=== PATIENT | male | born 1960 | race Caucasian/White ===

== ENCOUNTER 2018-12-01 19:40 | Inpatient (IN) | payer OTHER ==
[~2018-12-01] VITALS: Ht 172.7 cm; Wt 198.2 kg
[2018-12-01] MEDS ORDERED: ACETAMINOPHEN 325 MG TABLET PO PRN (20:15)
[2018-12-01] MEDS ORDERED: MAG HYDROX/AL HYDROX/SIMETH 30 ML ORAL.SUSP PO PRN (20:15)
[2018-12-01] MEDS ORDERED: METHYL SALICYLATE/MENTHOL TOPICAL OINTMENT 57GM TUBE. TP PRN (20:15)
[2018-12-01] MEDS ORDERED: MAGNESIUM HYDROXIDE 2,400 MG/30 ML ORAL.SUSP. PO PRN (20:15)
[2018-12-01 20:23] VITALS: BP 113/74
[2018-12-01 21:33] LABS: BACTERIA,URINE FEW /HPF (0-FEW); BILIRUBIN,URINE NEG (NEG); CLARITY,URINE CLEAR; COLOR,URINE YELLOW; GLUCOSE,URINE NEG (NEG); NITRITE,URINE NEG (NEG); RBC,URINE 0 /HPF (0-2); SQUAMOUS EPITHELIAL CELL,UR MOD /LPF; UROBILINOGEN,URINE 0.2 mg/dL (0.2 mg/dL); WBC,URINE RARE /HPF (0-4)
[2018-12-01] MEDS ORDERED: FLUT16SP21 NS (21:50)
[2018-12-01] MEDS ORDERED: FURO20TA3 PO (21:50)
[2018-12-01] MEDS ORDERED: ALBU2.5V5 NEB (21:50)
[2018-12-01] MEDS ORDERED: METF10007 PO (21:50)
[2018-12-01] MEDS ORDERED: LISI10TA2 PO (21:50)
[2018-12-01] MEDS ORDERED: DEXT-217 PO (21:50)
[2018-12-01] MEDS ORDERED: ALLO300T PO (21:50)
[2018-12-01] MEDS ORDERED: FERR324T2 PO (21:50)
[2018-12-01] MEDS ORDERED: DOCU100C28 PO (21:50)
[2018-12-01] MEDS ORDERED: DICL100G18 TP (21:50)
[2018-12-01] MEDS ORDERED: CHOL10003 PO (21:50)
[2018-12-01] MEDS ORDERED: LIRA0.6P2 SQ (21:50)
[2018-12-01] MEDS ORDERED: ROPI5TAB4 PO (21:50)
[2018-12-01] MEDS ORDERED: TRAZ150T49 PO (21:50)
[2018-12-01] MEDS ORDERED: ASCO500T3 PO (21:50)
[2018-12-01] MEDS ORDERED: TAMS0.4C97 PO (21:50)
[2018-12-01] MEDS ORDERED: WARF-31 PO ×2 (21:50)
[2018-12-01] MEDS ORDERED: ASPI-612 PO (21:50)
[2018-12-01] MEDS ORDERED: INSU100V31 SQ (21:50)
[2018-12-01] MEDS ORDERED: INSU100I13 SQ (21:50)
[2018-12-01] MEDS ORDERED: VENL150T PO (21:50)
[2018-12-01] MEDS ORDERED: LEVE750T8 PO (21:50)
[2018-12-01] MEDS ORDERED: MELA3TAB56 PO (21:50)
[2018-12-01] MEDS ORDERED: ARIP5TAB13 PO (21:50)
[2018-12-01] MEDS ORDERED: PRAV40TA2 PO (21:50)
[2018-12-01] MEDS ORDERED: ALBU2.5V14 NEB (21:54)
--- NOTE | 2018-12-01 21:54 | PDOC ---
Exam Note: Chinmay Note: Please also refer to the separate dictated note~for this date of service dictated separately. Discussed the patient with Nursing staff reviewed the chart.~Reviewed interim history and current functioning. Reviewed vital signs,~Labs/ Radiology~and current medications noted below. Continue current treatment with the changes noted in the dictated addendum note Assessment: Vital Signs/I&O: Vital Signs Date Time Temp Pulse Resp B/P (MAP) Pulse Ox O2 Delivery O2 Flow Rate FiO2 12/01/18 20:23 97.7 86 22 113/74 (87) 98 Room Air Labs: Laboratory Tests Test 12/01/18 20:50 Urine Collection Type Unknown Urine Color Yellow Urine Clarity Clear Urine pH 6.0 Urine Specific [place] 1.020 Urine Protein Neg (NEG-TRACE) Urine Glucose (UA) Neg mg/dL (NEG) Urine Ketones (Stick) Neg mg/dL (NEG) Urine Blood Neg (NEG) Urine Nitrite Neg (NEG) Urine Bilirubin Neg (NEG) Urine Urobilinogen Dipstick 0.2 mg/dL (0.2 mg/dL) Urine Leukocyte Esterase Neg (NEG) Urine RBC 0 /HPF (0-2) Urine WBC Rare /HPF (0-4) Urine Squamous Epithelial Cells Mod /LPF Urine Bacteria Few /HPF (0-FEW) Urine Mucus Slight /LPF Current Medications: I have reviewed the current psychotropics carefully including drug interactions. Risk benefit ratio favors no change other than as noted in my dictated progress note. AMOL URBAN MD Dec 01, 2018 21:54
[2018-12-01 21:58] LABS: BASO % 1 % (0-3); EOS # 0.2 x10^3/uL (0.0-0.7); EOS % 2 % (0-3); HEMATOCRIT 40.1 % (39.0-53.0); HEMOGLOBIN 13.1 g/dL (13.0-17.5); LYMPH # 1.4 x10^3/uL (1.0-4.8); LYMPH % 14 % (24-48); MEAN CORPUSCULAR HEMOGLOBIN 26 pg (25-35); MEAN CORPUSCULAR HGB CONC 33 g/dL (31-37); MEAN CORPUSCULAR VOLUME 78 fL (79-100); MONO # 0.6 x10^3/uL (0.0-1.1); MONO % 6 % (0-9); NEUT # 7.8 x10^3uL (1.8-7.7); NEUT % 78 % (31-73); PLATELET COUNT 342 x10^3/uL (140-400); RED BLOOD COUNT 5.12 x10^6/uL (4.30-5.70); RED CELL DISTRIBUTION WIDTH 18.5 % (11.5-14.5); WHITE BLOOD COUNT 9.9 x10^3/uL (4.0-11.0)
[2018-12-01] MEDS ORDERED: NON FORMULARY ITEM (Albuterol Sulfate (Albuterol Sulfate Conc Neb Soln) 2.5 MG) NEB PRN (22:00)
[2018-12-01 22:10] LABS: ALBUMIN 3.8 g/dL (3.4-5.0); ALBUMIN/GLOBULIN RATIO 0.8 (1.0-1.7); CALCIUM 9.7 mg/dL (8.5-10.1); CREATININE 1.1 mg/dL (0.7-1.3); MAGNESIUM 1.8 mg/dL (1.8-2.4); POTASSIUM 3.8 mmol/L (3.5-5.1); TOTAL BILIRUBIN 0.3 mg/dL (0.2-1.0); TOTAL PROTEIN 8.5 g/dL (6.4-8.2)
[2018-12-01] MEDS ORDERED: DEXTROSE ORAL GEL 15 GM TUBE. PO PRN (22:30)
[2018-12-01] MEDS ORDERED: ALBUTEROL SULFATE 2.5 MG/3 ML NEBU. NEB PRN (22:45)
[2018-12-01] MEDS: traZODone 150 MG TABLET. PO SCH (22:50)
[2018-12-01] MEDS: SIMVASTATIN 20 MG TABLET PO SCH (22:50)
[2018-12-01] MEDS: MELATONIN 3 MG TABLET PO SCH (22:51)
[2018-12-01] MEDS: levETIRAcetam 500 MG TABLET PO SCH (22:51)
[2018-12-01] MEDS: DOCUSATE SODIUM 100 MG CAPSULE PO SCH (22:51)
[2018-12-01] MEDS: TAMSULOSIN 0.4 MG CAP.ER.24H. PO SCH (22:51)
[2018-12-01] MEDS: rOPINIRole 1 MG TABLET. PO SCH (22:52)
[2018-12-01] MEDS: INSULIN GLARGINE SYRINGE. SQ SCH (23:19)
[2018-12-02 06:39] VITALS: BP 123/86
[2018-12-02] MEDS: levETIRAcetam 500 MG TABLET PO SCH ×2 (09:00→20:01)
[2018-12-02] MEDS ORDERED: INSULIN GLARGINE HUM REC ANLOG 35 UNIT SQ SCH (09:00)
[2018-12-02] MEDS: NON FORMULARY ITEM (Liraglutide (Victoza 3-Pak) 1.8 MG) SQ SCH (09:00)
[2018-12-02] MEDS ORDERED: LEVETIRACETAM 1500 MG PO SCH (09:00)
[2018-12-02] MEDS: DOCUSATE SODIUM 100 MG CAPSULE PO SCH ×2 (09:00→20:00)
[2018-12-02] MEDS ORDERED: DOCUSATE SODIUM 100 MG CAPSULE PO SCH (09:00)
[2018-12-02] MEDS: INSULIN LISPRO 300 UNITS/3 ML VIAL. SQ SCH ×3 (09:05→17:19)
[2018-12-02] MEDS: INSULIN GLARGINE SYRINGE. SQ SCH ×2 (09:07→20:54)
[2018-12-02] MEDS: CHOLECALCIFEROL (VITAMIN D3) 1,000 UNIT TABLET PO SCH (09:14)
[2018-12-02] MEDS: ASCORBIC ACID 500 MG TABLET PO SCH ×2 (09:15→20:01)
[2018-12-02] MEDS: metFORMIN 500 MG TABLET PO SCH ×2 (09:15→16:58)
[2018-12-02] MEDS: FUROSEMIDE 20 MG TABLET PO SCH (09:16)
[2018-12-02] MEDS: VENLAFAXINE 100 MG TABLET. PO SCH ×3 (09:16→20:02)
[2018-12-02] MEDS: ARIPiprazole 5 MG TABLET PO SCH (09:16)
[2018-12-02] MEDS: ASPIRIN ENTERIC COATED 81 MG TABLET.DR. PO SCH (09:16)
[2018-12-02] MEDS: FERROUS SULFATE 325 MG TABLET. PO SCH ×2 (09:17→16:58)
[2018-12-02] MEDS: ALLOPURINOL 300 MG TABLET. PO SCH (09:17)
[2018-12-02] MEDS: LISINOPRIL 10 MG TABLET PO SCH (09:18)
[2018-12-02] MEDS: FLUTICASONE 50MCG/NASAL SPRAY 16GM BOTTLE. NS SCH (11:25)
[2018-12-02 15:57] VITALS: BP 103/69
[2018-12-02 16:10] VITALS: BP 116/75
[2018-12-02 16:15] VITALS: BP 126/88
[2018-12-02 16:20] VITALS: BP 96/67
[2018-12-02] MEDS: WARFARIN 5 MG TABLET. PO SCH (17:24)
[2018-12-02 19:53] LABS: THYROID STIM HORMONE (TSH) 6.019 uIU/mL (0.358-3.740)
[2018-12-02] MEDS: SIMVASTATIN 20 MG TABLET PO SCH (20:00)
[2018-12-02] MEDS: TAMSULOSIN 0.4 MG CAP.ER.24H. PO SCH (20:00)
[2018-12-02] MEDS: rOPINIRole 1 MG TABLET. PO SCH (20:00)
[2018-12-02] MEDS: MELATONIN 3 MG TABLET PO SCH (20:01)
[2018-12-02] MEDS: traZODone 150 MG TABLET. PO SCH (20:02)
[2018-12-02] MEDS ORDERED: ROPINIROLE HCL 5 MG PO SCH (21:00)
[2018-12-02] MEDS ORDERED: traZODone 150 MG TABLET. PO SCH (21:00)
[2018-12-02] MEDS ORDERED: TAMSULOSIN 0.4 MG CAP.ER.24H. PO SCH (21:00)
[2018-12-02] MEDS ORDERED: NON FORMULARY ITEM (Melatonin 6 MG) PO SCH (21:00)
[2018-12-02] MEDS ORDERED: NON FORMULARY ITEM (Pravastatin Sodium 40 MG) PO SCH (21:00)
--- NOTE | 2018-12-02 21:10 | PDOC ---
Exam Note: Chinmay Note: Please also refer to the separate dictated note~for this date of service dictated separately.~Patient seen individually. Discussed the patient with Nursing staff reviewed the chart.~Reviewed interim history and current functioning. Reviewed vital signs,~Labs/ Radiology~and current medications noted below. Continue current treatment with the changes noted in the dictated addendum note Assessment: Vital Signs/I&O: Vital Signs Date Time Temp Pulse Resp B/P (MAP) Pulse Ox O2 Delivery O2 Flow Rate FiO2 12/02/18 16:20 78 96/67 (77) Room Air 12/02/18 15:57 97.9 16 93 I & O 12/01/18 12/01/18 12/02/18 14:59 22:59 06:59 Intake Total 0 ml Balance 0 ml Labs: Laboratory Tests Test 12/01/18 21:30 12/01/18 22:32 12/02/18 06:04 12/02/18 07:53 White Blood Count 9.9 x10^3/uL (4.0-11.0) Red Blood Count 5.12 x10^6/uL (4.30-5.70) Hemoglobin 13.1 g/dL (13.0-17.5) Hematocrit 40.1 % (39.0-53.0) Mean Corpuscular Volume 78 fL (79-100) L Mean Corpuscular Hemoglobin 26 pg (25-35) Mean Corpuscular Hemoglobin Concent 33 g/dL (31-37) Red Cell Distribution Width 18.5 % (11.5-14.5) H Platelet Count 342 x10^3/uL (140-400) Neutrophils (%) (Auto) 78 % (31-73) H Lymphocytes (%) (Auto) 14 % (24-48) L Monocytes (%) (Auto) 6 % (0-9) Eosinophils (%) (Auto) 2 % (0-3) Basophils (%) (Auto) 1 % (0-3) Neutrophils # (Auto) 7.8 x10^3uL (1.8-7.7) H Lymphocytes # (Auto) 1.4 x10^3/uL (1.0-4.8) Monocytes # (Auto) 0.6 x10^3/uL (0.0-1.1) Eosinophils # (Auto) 0.2 x10^3/uL (0.0-0.7) Basophils # (Auto) 0.0 x10^3/uL (0.0-0.2) Sodium Level 136 mmol/L (136-145) Potassium Level 3.8 mmol/L (3.5-5.1) Chloride Level 98 mmol/L (98-107) Carbon Dioxide Level 27 mmol/L (21-32) Anion Gap 11 (6-14) Blood Urea Nitrogen 20 mg/dL (8-26) Creatinine 1.1 mg/dL (0.7-1.3) Estimated GFR (Cockcroft-Gault) 69.0 BUN/Creatinine Ratio 18 (6-20) Glucose Level 86 mg/dL (70-99) Calcium Level 9.7 mg/dL (8.5-10.1) Magnesium Level 1.8 mg/dL (1.8-2.4) Iron Level 30 ug/dL (65-175) L Total Iron Binding Capacity 334 ug/dL (250-450) Iron Saturation 9 % (15-34) L Total Bilirubin 0.3 mg/dL (0.2-1.0) Aspartate Amino Transferase (AST) 21 U/L (15-37) Alanine Aminotransferase (ALT) 38 U/L (16-63) Alkaline Phosphatase 162 U/L (46-116) H Total Protein 8.5 g/dL (6.4-8.2) H Albumin 3.8 g/dL (3.4-5.0) Albumin/Globulin Ratio 0.8 (1.0-1.7) L Triglycerides Level 97 mg/dL (0-150) Cholesterol Level 155 mg/dL (0-200) LDL Cholesterol, Calculated 86 mg/dL (0-100) VLDL Cholesterol, Calculated 19 mg/dL (0-40) Non-HDL Cholesterol Calculated 105 mg/dL (0-129) HDL Cholesterol 50 mg/dL (40-60) Cholesterol/HDL Ratio 3.0 25-Hydroxy Vitamin D Total 36.7 ng/mL (30-100) Thyroid Stimulating Hormone (TSH) 6.019 uIU/mL (0.358-3.740) Treponema pallidum Antibody Nonreactive (Nonreactive) Glucose (Fingerstick) 139 mg/dL (70-99) H 157 mg/dL (70-99) H Prothrombin Time 20.4 SEC (9.4-11.4) H Prothrombin Time INR 2.0 (0.9-1.1) H Test 12/02/18 19:30 Glucose (Fingerstick) 158 mg/dL (70-99) H Current Medications: Meds: Current Medications Medications (Trade) Dose Ordered Sig/Rashmi Route PRN Reason Start Time Stop Time Status Last Admin Dose Admin Allopurinol (Zyloprim) 300 mg DAILY PO 12/02/18 09:00 12/02/18 09:18 Ascorbic Acid (Vitamin C) 250 mg BID PO 12/02/18 09:00 12/02/18 20:02 Aspirin (Aspirin Enteric Coated) 81 mg DAILY PO 12/02/18 09:00 12/02/18 09:18 Vitamin D (Vitamin D3) 1,000 unit DAILY PO 12/02/18 09:00 12/02/18 09:18 Fluticasone Propionate (Flonase) 2 spray DAILY NS 12/02/18 09:00 12/02/18 11:25 Furosemide (Lasix) 20 mg DAILY PO 12/02/18 09:00 12/02/18 09:18 Lisinopril (Prinivil) 10 mg DAILY PO 12/02/18 09:00 12/02/18 09:18 Warfarin Sodium (Coumadin) 12.5 mg SuMoTuThFrSa PO 12/02/18 16:00 12/02/18 17:24 Ferrous Sulfate (Feosol) 325 mg BIDBFRMEAL PO 12/02/18 07:30 12/02/18 17:01 Insulin Human Lispro (HumaLOG) 35 units TIDWMEALS SQ 12/02/18 08:00 12/02/18 17:19 Metformin HCl (Glucophage) 1,000 mg BIDWMEALS PO 12/02/18 08:00 12/02/18 17:01 Aripiprazole (Abilify) 2.5 mg DAILY PO 12/02/18 09:00 12/02/18 09:18 Venlafaxine HCl (Effexor) 100 mg TID PO 12/02/18 09:00 12/02/18 20:02 Warfarin Sodium (Coumadin Per Pharmacy) 1 each PRN DAILY PRN MC SEE COMMENTS 12/01/18 22:00 12/02/18 13:00 Docusate Sodium (Colace) 100 mg BID PO 12/01/18 22:30 12/02/18 20:02 Tamsulosin HCl (Flomax) 0.4 mg HS PO 12/01/18 22:30 12/02/18 20:02 Trazodone HCl (Desyrel) 150 mg HS PO 12/01/18 22:30 12/02/18 20:02 Insulin Glargine (Lantus Syringe) 35 unit BID SQ 12/01/18 23:00 12/02/18 20:54 Levetiracetam (Keppra) 1,500 mg BID PO 12/01/18 22:30 12/02/18 20:02 Melatonin 6 mg QHS PO 12/01/18 22:30 12/02/18 20:02 Simvastatin (Zocor) 20 mg HS PO 12/01/18 22:45 12/02/18 20:02 Ropinirole HCl (Requip) 5 mg HS PO 12/01/18 22:45 12/02/18 20:02 I have reviewed the current psychotropics carefully including drug interactions. Risk benefit ratio favors no change other than as noted in my dictated progress note. Diagnosis: Problems: (1) Anxiety disorder (2) Impulse control disorder (3) Major depressive disorder, recurrent episode AMOL URBAN MD Dec 02, 2018 21:09
[2018-12-03 01:07] LABS: HEMOGLOBIN A1C 5.9 % (4.8-5.6); THYROXINE 7.4 ug/dL (4.5-12.0)
--- NOTE | 2018-12-03 01:26 | CONS ---
DATE OF CONSULTATION: 12/02/2018 REASON FOR CONSULTATION: Medical management. HISTORY OF PRESENT ILLNESS: The patient is a 58-year-old male patient, who was admitted from home with suicidal ideation, thoughts of self-harm, increased depression, anxiety and feeling worthless and useless. Apparently, he has memory problem and has difficulty with dizziness when he stands up. 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 PAST MEDICAL HISTORY: Significant for hypertension, hyperlipidemia, type 2 diabetes, morbid obesity, obstructive sleep apnea, bronchial asthma, diabetic neuropathy, has malignant bladder tumor, benign prostatic hypertrophy, bilateral pulmonary emboli, osteoarthritis, syncope and epigastric pain. PAST PSYCHIATRIC HISTORY: Significant for depression and posttraumatic stress disorder. PAST SURGICAL HISTORY: Unremarkable. ALLERGIES: He is allergic to ADHESIVE TAPES, ATORVASTATIN, OXYCODONE AND SAXAGLIPTIN. MEDICATIONS: He is currently on following medications: He is on albuterol sulfate 2.5 mg by nebulizer 3 times a day, tamsulosin 0.4 mg at bedtime, ferrous sulfate 324 mg p.o. b.i.d., warfarin 15 mg every Thursday, warfarin 12.5 mg daily except Thursday. He is on pravastatin 40 mg at bedtime, lisinopril 10 mg daily, aspirin 81 mg once a day, Diclofenac sodium 2 grams topically q.i.d., Keppra 1500 mg twice a day, trazodone 150 mg at bedtime, venlafaxine 300 mg daily, aripiprazole 2.5 mg daily, Requip 5 mg at bedtime, glucose 16 grams p.o. as needed for hypoglycemia, furosemide 20 mg daily, Flonase 2 sprays to each nostril once a day, Colace 100 mg twice a day, metformin 1000 mg twice a day, Victoza 1.8 mg subcutaneously daily. He is on NovoLog insulin 35 units 3 times a day with meals and Lantus insulin 35 units subcutaneously twice a day, ascorbic acid 500 mg twice a day, vitamin D3 1000 international unit once a day, allopurinol 300 mg once a day, and melatonin 6 mg at bedtime. REVIEW OF SYSTEMS: As per history of present illness. PHYSICAL EXAMINATION: GENERAL: On examining him, he was sitting comfortably in his chair, in no apparent respiratory distress. No pallor, jaundice, cyanosis, or thyromegaly. No jugular venous distension. No limb edema. VITAL SIGNS: Heart rate was 86, blood pressure was 113/74, temperature was 97.7, respiratory rate was 22 and oxygen saturation was 98% on room air. HEAD, EYES, EARS, NOSE AND THROAT: Showed normocephalic, atraumatic. NECK: Supple. HEART: Showed normal first and second heart sounds. No gallop or murmur. CHEST: Clear to auscultation. No crepitation or rhonchi. ABDOMEN: Markedly distended, soft, nontender. NEUROLOGIC: He is awake, alert, responding appropriately. All cranial nerves intact. EXTREMITIES: He moves extremities without difficulty, ambulates with a walker. Does have some residual left-sided weakness. LABORATORY DATA: Showed a serum sodium 136, potassium 3.8, chloride 98, bicarbonate 27, anion gap of 11, BUN 20, creatinine 1.1, estimated GFR was 69 mL per minute. His glucose was 86, calcium was 9.7 and magnesium was 1.8. Total bilirubin, AST, ALT were normal. Alkaline phosphatase slightly elevated. Total protein was 8.5, albumin was 3.8. His white cell count was 9900, hemoglobin 13, hematocrit 40, MCV 78 and platelet count 342,000. Prothrombin time was 20.4, INR of 2. Urinalysis was essentially unremarkable. IMPRESSION: In summary, this is a 58-year-old male patient who was [facility] on account of suicidal ideation and thoughts of self-harm, increased depression, anxiety, feeling worthless and useless, all this in a background of major depressive disorder, recurrent severe with posttraumatic stress disorder. Apparently, the patient has a meningioma that was not completely resected and resulted in seizures for which he is now on Keppra 1500 mg twice a day. He has also problems with short-term memory and also dizziness whenever he stands up. He has multiple other medical problems including hypertension, hyperlipidemia, type 2 diabetes, morbid obesity, obstructive sleep apnea, has malignant bladder cancer, benign prostatic hypertrophy, bilateral pulmonary emboli and gout. PLAN: My plan is to check his orthostatics and consult Dr. Fisher and decide the further management accordingly. Thank you, Dr. Krishnan for allowing me to participate in the care of this patient. TONY STREET MD DR: Yang JOB#: [id number] / [id number]
[2018-12-03 06:31] VITALS: BP 116/72
[2018-12-03] MEDS: INSULIN LISPRO 300 UNITS/3 ML VIAL. SQ SCH ×3 (08:00→16:39)
[2018-12-03] MEDS: levETIRAcetam 500 MG TABLET PO SCH ×2 (08:32→20:12)
[2018-12-03] MEDS: VENLAFAXINE 100 MG TABLET. PO SCH ×2 (08:32→13:32)
[2018-12-03] MEDS: ARIPiprazole 5 MG TABLET PO SCH (08:33)
[2018-12-03] MEDS: LISINOPRIL 10 MG TABLET PO SCH (08:34)
[2018-12-03] MEDS: ASPIRIN ENTERIC COATED 81 MG TABLET.DR. PO SCH (08:34)
[2018-12-03] MEDS: metFORMIN 500 MG TABLET PO SCH ×2 (08:34→16:43)
[2018-12-03] MEDS: ALLOPURINOL 300 MG TABLET. PO SCH (08:34)
[2018-12-03] MEDS: DOCUSATE SODIUM 100 MG CAPSULE PO SCH ×2 (08:34→20:11)
[2018-12-03] MEDS: FUROSEMIDE 20 MG TABLET PO SCH (08:35)
[2018-12-03] MEDS: ASCORBIC ACID 500 MG TABLET PO SCH ×2 (08:35→20:11)
[2018-12-03] MEDS: CHOLECALCIFEROL (VITAMIN D3) 1,000 UNIT TABLET PO SCH (08:35)
[2018-12-03] MEDS: FLUTICASONE 50MCG/NASAL SPRAY 16GM BOTTLE. NS SCH (08:36)
[2018-12-03] MEDS: FERROUS SULFATE 325 MG TABLET. PO SCH ×2 (08:36→15:53)
[2018-12-03] MEDS: INSULIN GLARGINE SYRINGE. SQ SCH ×2 (08:38→20:19)
[2018-12-03] MEDS: NON FORMULARY ITEM (Liraglutide (Victoza 3-Pak) 1.8 MG) SQ SCH (09:00)
--- NOTE | 2018-12-03 13:49 | HP ---
ADMIT DATE: 12/02/2018 PSYCHIATRIC ADMISSION HISTORY/EVALUATION This late entry, date of service 12/02/2018 covers the elements not covered in my initial note. I met with the patient in the evening of 12/02/2018 for this evaluation. IDENTIFYING DATA: The patient is a 58-year-old male referred to us from the [facility] in [place], [place] where he presented from home on account of suicidal ideation with thoughts of harming himself, worsening symptoms of depression, anxiety, feeling worthless, hopeless, helpless. He complains of some short-term memory deficits in addition to all of the above. He presented to the [facility] and then referred to us for inpatient psychiatric stabilization for his depression with suicidal ideation. CHIEF COMPLAINT: "They could not take me on the Adult Unit because of my weight. They did not have big enough beds for me. Yes, I have been depressed." HISTORY OF PRESENT ILLNESS: The patient relates worsening symptoms of depression, feeling hopeless, helpless, worthless, obsessed about wanting to hurt himself. He admits to some short-term memory deficits, which he attributes to cognitive impairment consequent to a meningioma removal in 2005 and he believes the scar caused the memory problems. He states he has had some absence seizures since then as well, treated on Keppra. No clear symptoms of bipolar disorder. He has had some sleep and appetite disturbance. PAST PSYCHIATRIC HISTORY: As above. MEDICAL HISTORY: Morbid obesity, hypertension, hyperlipidemia, diabetes mellitus, obstructive sleep apnea, asthma, diabetic neuropathy, PTSD, malignant bladder tumor, BPH, history of pulmonary embolism, osteoarthritis, history of syncope, epigastric pain. CODE STATUS: Full code. ALLERGIES: ADHESIVE TAPE, SAXAGLIPTIN, ATORVASTATIN, OXYCODONE. ACCU-CHEKS: a.c. and at bedtime. DIET: Regular, diabetic. Ambulates ad jose luis with walker. CURRENT PSYCHOTROPICS: Abilify 2.5 mg a day, melatonin 6 mg at bedtime, trazodone 150 mg at bedtime, Effexor XR 300 mg daily. FAMILY HISTORY: Noncontributory. SOCIAL HISTORY: No alcohol, drug abuse, physical, sexual or elder abuse. He is not known to be a perpetrator. He resides at home with his . ASSETS: Supportive family, stable living at home. REACTION TO HOSPITALIZATION: The patient accepting of it. MENTAL STATUS EXAMINATION: The patient was seen individually in the evening of 12/02/2018. He is alert, oriented to himself and situation. He knew the President was President Roberto. He knew the year, was able to do one step on the serial 7's, did have some short-term memory deficits. Mood is depressed, anxious. Affect is mood congruent. He denied active current suicidal ideation. Attention span is short. Language function intact. Intellect average. Insight good. Judgment intact to standard questioning. IMPRESSION: Major depressive disorder, recurrent with suicidal ideation; history of posttraumatic stress disorder, anxiety disorder, unspecified. Rest as above. PLAN: Admit to Gerops[facility]iat[facility] Unit at [facility]. I will see the patient daily individually from a psychiatric standpoint. Medical followup with Dr. Mesa. We will obtain past [facility] records from the [facility], then consider changing the Effexor to Cymbalta augmenting with increasing dosage of Abilify and possibly Wellbutrin and if bipolar 2 disorder symptoms are evident, we will consider Lamictal. ESTIMATED LENGTH OF STAY: 10-12 days. DISPOSITION: Plans back home with outpatient followup at the [facility]. AMOL URBAN MD DR: YISSEL/jin JOB#: [id number] / [id number]
[2018-12-03] MEDS ORDERED: DEXTROSE 50% 25 GM / 50ML DISP.SYRIN. IV PRN (14:15)
[2018-12-03 15:51] VITALS: BP 118/73
[2018-12-03] MEDS: WARFARIN 5 MG TABLET. PO SCH (15:52)
[2018-12-03] MEDS: traZODone 150 MG TABLET. PO SCH (20:10)
[2018-12-03] MEDS: rOPINIRole 1 MG TABLET. PO SCH (20:10)
[2018-12-03] MEDS: TAMSULOSIN 0.4 MG CAP.ER.24H. PO SCH (20:12)
[2018-12-03] MEDS: MELATONIN 3 MG TABLET PO SCH (20:12)
[2018-12-03] MEDS: SIMVASTATIN 20 MG TABLET PO SCH (20:18)
[2018-12-03] MEDS ORDERED: DULoxetine HCL 30 MG CAPSULE.DR PO SCH (21:00)
--- NOTE | 2018-12-03 22:03 | PDOC ---
Exam Note: Chinmay Note: Please also refer to the separate dictated note~for this date of service dictated separately.~Patient seen individually. Discussed the patient with Nursing staff reviewed the chart.~Reviewed interim history and current functioning. Reviewed vital signs,~Labs/ Radiology~and current medications noted below. Continue current treatment with the changes noted in the dictated addendum note Assessment: Vital Signs/I&O: Vital Signs Date Time Temp Pulse Resp B/P (MAP) Pulse Ox O2 Delivery O2 Flow Rate FiO2 12/03/18 15:51 98.0 88 20 118/73 (88) 94 12/03/18 06:31 BiPAP/CPAP I & O 12/02/18 12/02/18 12/03/18 14:59 22:59 06:59 Intake Total 960 ml 480 ml 240 ml Balance 960 ml 480 ml 240 ml Labs: Laboratory Tests Test 12/03/18 07:21 12/03/18 11:19 12/03/18 16:19 12/03/18 19:07 Glucose (Fingerstick) 100 mg/dL (70-99) H 150 mg/dL (70-99) H 117 mg/dL (70-99) H 172 mg/dL (70-99) H Current Medications: I have reviewed the current psychotropics carefully including drug interactions. Risk benefit ratio favors no change other than as noted in my dictated progress note. Diagnosis: Problems: (1) Anxiety disorder (2) Impulse control disorder (3) Major depressive disorder, recurrent episode AMOL URBAN MD Dec 03, 2018 22:03
[2018-12-04 06:00] VITALS: BP 109/73
[2018-12-04] MEDS: INSULIN LISPRO 300 UNITS/3 ML VIAL. SQ SCH ×3 (08:00→17:00)
[2018-12-04] MEDS: metFORMIN 500 MG TABLET PO SCH ×2 (08:21→16:58)
[2018-12-04] MEDS: ASCORBIC ACID 500 MG TABLET PO SCH ×2 (08:21→20:17)
[2018-12-04] MEDS: levETIRAcetam 500 MG TABLET PO SCH ×2 (08:22→20:18)
[2018-12-04] MEDS: ALLOPURINOL 300 MG TABLET. PO SCH (08:22)
[2018-12-04] MEDS: ASPIRIN ENTERIC COATED 81 MG TABLET.DR. PO SCH (08:22)
[2018-12-04] MEDS: DOCUSATE SODIUM 100 MG CAPSULE PO SCH ×2 (08:22→20:17)
[2018-12-04] MEDS: FERROUS SULFATE 325 MG TABLET. PO SCH ×2 (08:22→16:48)
[2018-12-04] MEDS: FUROSEMIDE 20 MG TABLET PO SCH (08:22)
[2018-12-04] MEDS: CHOLECALCIFEROL (VITAMIN D3) 1,000 UNIT TABLET PO SCH (08:23)
[2018-12-04] MEDS: ARIPiprazole 5 MG TABLET PO SCH (08:23)
[2018-12-04] MEDS: VENLAFAXINE 37.5 MG TABLET. PO SCH ×3 (08:39→20:17)
[2018-12-04] MEDS: LISINOPRIL 5 MG TABLET. PO SCH (08:39)
[2018-12-04] MEDS: INSULIN GLARGINE SYRINGE. SQ SCH ×2 (09:26→20:50)
[2018-12-04] MEDS: FLUTICASONE 50MCG/NASAL SPRAY 16GM BOTTLE. NS SCH ×2 (10:00→10:04)
[2018-12-04 16:00] VITALS: BP_SYST 106; BP_SYST 110; BP_DIAS 71; BP_DIAS 73
[2018-12-04] MEDS: DICLOFENAC SODIUM 1% TOPICAL GEL 100GM TUBE. TP PRN (16:00)
[2018-12-04] MEDS ORDERED: WARFARIN 7.5 MG TABLET. PO ONE (16:00)
[2018-12-04] MEDS ORDERED: WARFARIN 4 MG TABLET. PO ONE (16:00)
[2018-12-04] MEDS: TAMSULOSIN 0.4 MG CAP.ER.24H. PO SCH (20:17)
[2018-12-04] MEDS: MELATONIN 3 MG TABLET PO SCH (20:17)
[2018-12-04] MEDS: SIMVASTATIN 20 MG TABLET PO SCH (20:17)
[2018-12-04] MEDS: traZODone 150 MG TABLET. PO SCH (20:17)
[2018-12-04] MEDS: rOPINIRole 1 MG TABLET. PO SCH (20:18)
--- NOTE | 2018-12-04 22:42 | PDOC ---
Exam Note: Chinmay Note: Please also refer to the separate dictated note~for this date of service dictated separately.~Patient seen individually. Discussed the patient with Nursing staff reviewed the chart.~Reviewed interim history and current functioning. Reviewed vital signs,~Labs/ Radiology~and current medications noted below. Continue current treatment with the changes noted in the dictated addendum note Assessment: Vital Signs/I&O: Vital Signs Date Time Temp Pulse Resp B/P (MAP) Pulse Ox O2 Delivery O2 Flow Rate FiO2 12/04/18 16:00 98.0 69 18 110/73 (85) 97 12/04/18 06:00 BiPAP/CPAP I & O 12/03/18 12/03/18 12/04/18 15:00 23:00 07:00 Intake Total 1200 ml 420 ml Balance 1200 ml 420 ml Labs: Laboratory Tests Test 12/04/18 06:29 12/04/18 07:10 12/04/18 11:58 12/04/18 16:34 Prothrombin Time 28.5 SEC (9.4-11.4) H Prothrombin Time INR 2.7 (0.9-1.1) H Glucose (Fingerstick) 123 mg/dL (70-99) H 148 mg/dL (70-99) H 159 mg/dL (70-99) H Test 12/04/18 19:19 Glucose (Fingerstick) 138 mg/dL (70-99) H Current Medications: Meds: Current Medications Medications (Trade) Dose Ordered Sig/Rashmi Route PRN Reason Start Time Stop Time Status Last Admin Dose Admin Lisinopril (Prinivil) 5 mg DAILY PO 12/04/18 09:00 12/04/18 08:39 Venlafaxine HCl (Effexor) 37.5 mg TID PO 12/04/18 09:00 12/06/18 09:00 12/04/18 20:19 Warfarin Sodium (Coumadin) 7.5 mg 1X WARF ONCE PO 12/04/18 16:00 12/04/18 16:01 DC 12/04/18 15:55 Warfarin Sodium (Coumadin) 4 mg 1X WARF ONCE PO 12/04/18 16:00 12/04/18 16:01 DC 12/04/18 15:55 I have reviewed the current psychotropics carefully including drug interactions. Risk benefit ratio favors no change other than as noted in my dictated progress note. Diagnosis: Problems: (1) Anxiety disorder (2) Impulse control disorder (3) Major depressive disorder, recurrent episode AMOL URBAN MD Dec 04, 2018 22:42
[2018-12-05 05:45] VITALS: BP 122/80
[2018-12-05] MEDS: DOCUSATE SODIUM 100 MG CAPSULE PO SCH ×3 (07:59→20:21)
[2018-12-05] MEDS: ALLOPURINOL 300 MG TABLET. PO SCH (08:00)
[2018-12-05] MEDS: LISINOPRIL 5 MG TABLET. PO SCH (08:00)
[2018-12-05] MEDS: VENLAFAXINE 37.5 MG TABLET. PO SCH ×3 (08:00→19:51)
[2018-12-05] MEDS: levETIRAcetam 500 MG TABLET PO SCH ×2 (08:00→19:52)
[2018-12-05] MEDS: INSULIN LISPRO 300 UNITS/3 ML VIAL. SQ SCH ×3 (08:00→17:00)
[2018-12-05] MEDS: FERROUS SULFATE 325 MG TABLET. PO SCH ×2 (08:00→16:44)
[2018-12-05] MEDS: ASCORBIC ACID 500 MG TABLET PO SCH ×2 (08:01→19:52)
[2018-12-05] MEDS: ASPIRIN ENTERIC COATED 81 MG TABLET.DR. PO SCH (08:01)
[2018-12-05] MEDS: FUROSEMIDE 20 MG TABLET PO SCH (08:01)
[2018-12-05] MEDS: metFORMIN 500 MG TABLET PO SCH ×2 (08:01→17:02)
[2018-12-05] MEDS: CHOLECALCIFEROL (VITAMIN D3) 1,000 UNIT TABLET PO SCH (08:01)
[2018-12-05] MEDS: QUEtiapine 25 MG TABLET. PO SCH ×3 (08:13→17:02)
[2018-12-05 08:59] LABS: HEMATOCRIT 39.4 % (39.0-53.0); HEMOGLOBIN 12.7 g/dL (13.0-17.5)
[2018-12-05] MEDS: INSULIN GLARGINE SYRINGE. SQ SCH ×2 (09:00→20:28)
[2018-12-05 16:07] VITALS: BP 106/65
[2018-12-05] MEDS: MELATONIN 3 MG TABLET PO SCH (19:52)
[2018-12-05] MEDS: traZODone 150 MG TABLET. PO SCH (19:52)
[2018-12-05] MEDS: SIMVASTATIN 20 MG TABLET PO SCH (19:52)
[2018-12-05] MEDS: TAMSULOSIN 0.4 MG CAP.ER.24H. PO SCH (19:52)
[2018-12-05] MEDS: rOPINIRole 1 MG TABLET. PO SCH (19:53)
--- NOTE | 2018-12-05 22:24 | PDOC ---
Exam Note: Chinmay Note: Please also refer to the separate dictated note~for this date of service dictated separately.~Patient seen individually. Discussed the patient with Nursing staff reviewed the chart.~Reviewed interim history and current functioning. Reviewed vital signs,~Labs/ Radiology~and current medications noted below. Continue current treatment with the changes noted in the dictated addendum note Assessment: Vital Signs/I&O: Vital Signs Date Time Temp Pulse Resp B/P (MAP) Pulse Ox O2 Delivery O2 Flow Rate FiO2 12/05/18 16:07 98.6 76 21 106/65 (79) 98 12/04/18 06:00 BiPAP/CPAP I & O 12/04/18 12/04/18 12/05/18 14:59 22:59 06:59 Intake Total 960 ml 480 ml 240 ml Balance 960 ml 480 ml 240 ml Labs: Laboratory Tests Test 12/05/18 07:13 12/05/18 07:24 12/05/18 12:02 12/05/18 16:19 Glucose (Fingerstick) 139 mg/dL (70-99) H 112 mg/dL (70-99) H 167 mg/dL (70-99) H Hemoglobin 12.7 g/dL (13.0-17.5) L Hematocrit 39.4 % (39.0-53.0) Prothrombin Time 34.1 SEC (9.4-11.4) H Prothrombin Time INR 3.3 (0.9-1.1) H Test 12/05/18 19:19 Glucose (Fingerstick) 139 mg/dL (70-99) H Current Medications: Meds: Current Medications Medications (Trade) Dose Ordered Sig/Rashmi Route PRN Reason Start Time Stop Time Status Last Admin Dose Admin Fluvoxamine Maleate (Luvox) 50 mg HS PO 12/05/18 21:00 12/05/18 19:54 Quetiapine Fumarate (SEROquel) 12.5 mg TID@0900,1300,1700 PO 12/05/18 09:00 12/05/18 17:02 I have reviewed the current psychotropics carefully including drug interactions. Risk benefit ratio favors no change other than as noted in my dictated progress note. Diagnosis: Problems: (1) Anxiety disorder (2) Impulse control disorder (3) Major depressive disorder, recurrent episode AMOL URBAN MD Dec 05, 2018 22:24
--- NOTE | 2018-12-05 22:44 | PN ---
DATE: 12/03/2018 PSYCHIATRIC PROGRESS NOTE This late entry 12/03/2018 covers the elements not covered in my initial note. I met with the patient at length the evening of 12/03/2018. The patient slept 7-1/4 hours previous night. He has been somewhat withdrawn, but nursing report noted to be manipulative. He told one of the female nursing staff, Kiara, that he had suicidal ideation and had taken a plastic knife from the dining room. He was in conflict with nursing staff. I processed this at length with him. REVIEW OF SYSTEMS: Ambulation impaired, with walker. No CV, , pulmonary, eye, ENT system symptoms on review. MENTAL STATUS EXAM: Oriented reasonably. Speech is coherent, abstraction fair, computation impaired, language function intact. Mood and affect somewhat depressed. He is anxious. PLAN: We had a lengthy discussion and he admits to being very obsessive, unable to drop thinking about things for days on end. I had considered changing the Effexor to Cymbalta as an antidepressant, but after the above information opted to change to Luvox 25 mg a day for 3 days, then 50 mg a day. We had a pharmacy consult to look for any drug interactions with the warfarin and the pharmacist, as indicated, they will monitor his PT/INRs more closely with the change and adjust the dosage of Coumadin as clinically indicated. IMPRESSION: Major depressive disorder, recurrent; anxiety disorder, unspecified, personality disorder, unspecified. Rest unchanged. PLAN: Change the Effexor to Luvox as above, maintain Abilify 2.5 mg a day, trazodone, melatonin for now. Consider Seroquel as a mood stabilizer in place of the Abilify at some point. MAN Miryam URBAN MD DR: YISSEL/jin JOB#: [id number] / [id number]
--- NOTE | 2018-12-05 22:57 | PN ---
DATE: 12/04/2018 PSYCHIATRIC PROGRESS NOTE This late entry 12/04/2018 covers elements not covered in my initial note. SUBJECTIVE: I met with the patient at great length the evening of 12/04/2018 and had been called by the nursing staff on a couple of occasions as an emergency earlier in the day after the patient had sneaked out a plastic knife from the dining room and then placed on line of sight, not to be back in his room, but in the activity area for safety precautions. The patient states he stole the knife to see how alert the nursing staff were to everything around them and in fact was the one, who went and told the staff what he had done and he would not have done this if he was suicidal. Nevertheless, he has difficulty recognizing things from a nursing standpoint as well and addressed at length. REVIEW OF SYSTEMS: Ambulation impaired. No CV, , pulmonary, eye system symptoms on review. MENTAL STATUS EXAM: Reasonably oriented. Speech is coherent. Abstraction fair. He is quite pressured in his speech at times, talking about the above incident at great length with me. No active suicidal or homicidal ideation. Somewhat anxious, labile in his mood. LABORATORY DATA: Reviewed. IMPRESSION: Major depressive disorder, recurrent. Rule out bipolar disorder, unspecified; anxiety disorder, unspecified; and personality disorder. PLAN: The patient has been placed no sharps or Styrofoam cups. Reportedly, he made statements that he could hurt himself, he would bleed to with a knife, but then did minimize this. Previously had told the staff he could drop himself on the floor and cause any significant injury because he is on Coumadin. We will continue to monitor this closely. IMPRESSION: Unchanged from initial note. PLAN: No change from initial note. Luvox has been initiated. We will change the Abilify to Seroquel 12.5 mg 9 a.m., 1:00 p.m., 5:00 p.m. Rest unchanged for now. MAN Miryam URBAN MD DR: YISSEL/jin JOB#: [id number] / [id number]
[2018-12-06 05:52] VITALS: BP 115/71
[2018-12-06] MEDS: INSULIN LISPRO 300 UNITS/3 ML VIAL. SQ SCH ×3 (08:30→17:19)
[2018-12-06] MEDS: INSULIN GLARGINE SYRINGE. SQ SCH ×2 (08:32→20:30)
[2018-12-06] MEDS: levETIRAcetam 500 MG TABLET PO SCH ×2 (08:33→20:29)
[2018-12-06] MEDS: FUROSEMIDE 20 MG TABLET PO SCH (08:33)
[2018-12-06] MEDS: DOCUSATE SODIUM 100 MG CAPSULE PO SCH ×2 (08:34→20:29)
[2018-12-06] MEDS: LISINOPRIL 5 MG TABLET. PO SCH (08:34)
[2018-12-06] MEDS: metFORMIN 500 MG TABLET PO SCH ×2 (08:35→17:01)
[2018-12-06] MEDS: ALLOPURINOL 300 MG TABLET. PO SCH (08:35)
[2018-12-06] MEDS: FERROUS SULFATE 325 MG TABLET. PO SCH ×2 (08:35→16:12)
[2018-12-06] MEDS: ASPIRIN ENTERIC COATED 81 MG TABLET.DR. PO SCH (08:35)
[2018-12-06] MEDS: ASCORBIC ACID 500 MG TABLET PO SCH ×2 (08:35→20:28)
[2018-12-06] MEDS: CHOLECALCIFEROL (VITAMIN D3) 1,000 UNIT TABLET PO SCH (08:35)
[2018-12-06] MEDS: FLUTICASONE 50MCG/NASAL SPRAY 16GM BOTTLE. NS SCH (08:36)
[2018-12-06] MEDS: QUEtiapine 25 MG TABLET. PO SCH ×3 (08:36→17:01)
[2018-12-06 15:35] VITALS: BP 97/60
[2018-12-06] MEDS ORDERED: WARFARIN 6 MG TABLET. PO ONE (16:00)
--- NOTE | 2018-12-06 17:24 | PN ---
DATE: 12/05/2018 PSYCHIATRIC PROGRESS NOTE This late entry, 12/05/2018, covers elements not covered in my initial note. SUBJECTIVE: I met with the patient evening of 12/05/2018. The patient slept 7 hours previous night. Per nursing report, the patient has done much better. Denies suicidal ideation and we will stop his one-on-one status. REVIEW OF SYSTEMS: Ambulation impaired, in wheelchair. No CV, , pulmonary, eye, ENT system symptoms on review. MENTAL STATUS EXAM: Reasonably oriented. Speech is coherent, abstraction fair, computation impaired, language function intact, attention span short. Mood and affect, lability is improved, appears less depressed. LABORATORY DATA: Reviewed. IMPRESSION: Major depressive disorder, recurrent; history of posttraumatic stress disorder. PLAN: Continue Luvox gradually increasing for his OCD symptoms. Effexor has been stopped. Maintain Seroquel, trazodone and melatonin for now. AMOL URBAN MD DR: YISSEL/jin JOB#: [id number] / [id number]
[2018-12-06] MEDS: MELATONIN 3 MG TABLET PO SCH (20:28)
[2018-12-06] MEDS: rOPINIRole 1 MG TABLET. PO SCH (20:28)
[2018-12-06] MEDS: traZODone 150 MG TABLET. PO SCH (20:28)
[2018-12-06] MEDS: TAMSULOSIN 0.4 MG CAP.ER.24H. PO SCH (20:29)
[2018-12-06] MEDS: SIMVASTATIN 20 MG TABLET PO SCH (20:31)
--- NOTE | 2018-12-06 21:45 | PDOC ---
Exam Note: Chinmay Note: Please also refer to the separate dictated note~for this date of service dictated separately.~Patient seen individually. Discussed the patient with Nursing staff reviewed the chart.~Reviewed interim history and current functioning. Reviewed vital signs,~Labs/ Radiology~and current medications noted below. Continue current treatment with the changes noted in the dictated addendum note Assessment: Vital Signs/I&O: Vital Signs Date Time Temp Pulse Resp B/P (MAP) Pulse Ox O2 Delivery O2 Flow Rate FiO2 12/06/18 15:35 97.5 61 20 97/60 (72) 99 12/04/18 06:00 BiPAP/CPAP I & O 12/05/18 12/05/18 12/06/18 15:00 23:00 07:00 Intake Total 480 ml 840 ml Balance 480 ml 840 ml Labs: Laboratory Tests Test 12/06/18 06:02 12/06/18 07:51 12/06/18 11:23 12/06/18 16:23 Prothrombin Time 27.0 SEC (9.4-11.4) H Prothrombin Time INR 2.6 (0.9-1.1) H Glucose (Fingerstick) 124 mg/dL (70-99) H 125 mg/dL (70-99) H 179 mg/dL (70-99) H Test 12/06/18 19:00 Glucose (Fingerstick) 181 mg/dL (70-99) H Current Medications: Meds: Current Medications Medications (Trade) Dose Ordered Sig/Rashmi Route PRN Reason Start Time Stop Time Status Last Admin Dose Admin Warfarin Sodium (Coumadin) 6 mg 1X WARF ONCE PO 12/06/18 16:00 12/06/18 16:01 DC 12/06/18 16:13 I have reviewed the current psychotropics carefully including drug interactions. Risk benefit ratio favors no change other than as noted in my dictated progress note. Diagnosis: Problems: (1) Anxiety disorder (2) Impulse control disorder (3) Major depressive disorder, recurrent episode AMOL URBAN MD Dec 06, 2018 21:45
[2018-12-07 05:48] VITALS: BP 116/74
[2018-12-07] MEDS: FERROUS SULFATE 325 MG TABLET. PO SCH ×2 (07:56→16:26)
[2018-12-07] MEDS: CHOLECALCIFEROL (VITAMIN D3) 1,000 UNIT TABLET PO SCH (07:57)
[2018-12-07] MEDS: levETIRAcetam 500 MG TABLET PO SCH ×2 (07:57→19:52)
[2018-12-07] MEDS: QUEtiapine 25 MG TABLET. PO SCH ×3 (07:57→16:25)
[2018-12-07] MEDS: FUROSEMIDE 20 MG TABLET PO SCH (07:57)
[2018-12-07] MEDS: ASPIRIN ENTERIC COATED 81 MG TABLET.DR. PO SCH (07:57)
[2018-12-07] MEDS: LISINOPRIL 5 MG TABLET. PO SCH (07:57)
[2018-12-07] MEDS: ASCORBIC ACID 500 MG TABLET PO SCH ×2 (07:58→19:56)
[2018-12-07] MEDS: ALLOPURINOL 300 MG TABLET. PO SCH (07:58)
[2018-12-07] MEDS: metFORMIN 500 MG TABLET PO SCH ×2 (07:58→16:27)
[2018-12-07] MEDS: FLUTICASONE 50MCG/NASAL SPRAY 16GM BOTTLE. NS SCH (08:01)
[2018-12-07] MEDS: INSULIN LISPRO 300 UNITS/3 ML VIAL. SQ SCH ×3 (08:01→17:00)
[2018-12-07] MEDS: DOCUSATE SODIUM 100 MG CAPSULE PO SCH ×2 (08:03→19:54)
[2018-12-07] MEDS: INSULIN GLARGINE SYRINGE. SQ SCH ×2 (08:03→20:23)
[2018-12-07 15:37] VITALS: BP 119/74
[2018-12-07] MEDS ORDERED: WARFARIN 3 MG TABLET. PO ONE (16:00)
[2018-12-07] MEDS ORDERED: WARFARIN 4 MG TABLET. PO ONE (16:00)
[2018-12-07] MEDS: rOPINIRole 1 MG TABLET. PO SCH (19:53)
[2018-12-07] MEDS: MELATONIN 3 MG TABLET PO SCH (19:53)
[2018-12-07] MEDS: traZODone 150 MG TABLET. PO SCH (19:54)
[2018-12-07] MEDS: TAMSULOSIN 0.4 MG CAP.ER.24H. PO SCH (19:54)
[2018-12-07] MEDS: SIMVASTATIN 20 MG TABLET PO SCH (19:54)
--- NOTE | 2018-12-07 21:46 | PDOC ---
Exam Note: Chinmay Note: Please also refer to the separate dictated note~for this date of service dictated separately.~Patient seen individually. Discussed the patient with Nursing staff reviewed the chart.~Reviewed interim history and current functioning. Reviewed vital signs,~Labs/ Radiology~and current medications noted below. Continue current treatment with the changes noted in the dictated addendum note Assessment: Vital Signs/I&O: Vital Signs Date Time Temp Pulse Resp B/P (MAP) Pulse Ox O2 Delivery O2 Flow Rate FiO2 12/07/18 15:37 97.5 79 18 119/74 (89) 97 12/07/18 05:48 Room Air I & O 12/06/18 12/06/18 12/07/18 15:00 23:00 07:00 Intake Total 840 ml 480 ml Balance 840 ml 480 ml Labs: Laboratory Tests Test 12/07/18 06:18 12/07/18 07:38 12/07/18 11:27 12/07/18 16:46 Prothrombin Time 20.8 SEC (9.4-11.4) H Prothrombin Time INR 2.0 (0.9-1.1) H Glucose (Fingerstick) 156 mg/dL (70-99) H 171 mg/dL (70-99) H 261 mg/dL (70-99) H Test 12/07/18 19:24 Glucose (Fingerstick) 158 mg/dL (70-99) H Current Medications: Meds: Current Medications Medications (Trade) Dose Ordered Sig/Rashmi Route PRN Reason Start Time Stop Time Status Last Admin Dose Admin Warfarin Sodium (Coumadin) 3 mg 1X WARF ONCE PO 12/07/18 16:00 12/07/18 16:01 DC 12/07/18 16:28 Warfarin Sodium (Coumadin) 4 mg 1X WARF ONCE PO 12/07/18 16:00 12/07/18 16:01 DC 12/07/18 16:28 I have reviewed the current psychotropics carefully including drug interactions. Risk benefit ratio favors no change other than as noted in my dictated progress note. Diagnosis: Problems: (1) Anxiety disorder (2) Impulse control disorder (3) Major depressive disorder, recurrent episode AMOL URBAN MD Dec 07, 2018 21:46
[2018-12-07] MEDS ORDERED: ALBUTEROL SULFATE 2.5 MG/3 ML NEBU. NEB PRN (23:15)
--- NOTE | 2018-12-07 23:31 | PN ---
DATE: 12/06/2018 PSYCHIATRIC PROGRESS NOTE This late entry, 12/06, covers the elements not covered in my initial note. SUBJECTIVE: I met with the patient on the evening of 12/06. The patient slept 7 hours previous night. He is compliant with his medications. Denies active suicidal ideation. However, as I met with him in the evening, he was quite verbal and frustrated because he believes nursing staff are unable to see things from his perception. He seems to be fairly rigid in his thinking in this respect. REVIEW OF SYSTEMS: Ambulation impaired with walker or wheelchair. No CV, , pulmonary, eye, ENT systems symptoms on review. One-on-one status has been discontinued. MENTAL STATUS EXAM: Reasonably oriented. Speech is coherent, abstraction fair, computation impaired. Mood and affect remains anxious, somewhat labile. LABORATORY DATA: Reviewed. IMPRESSION: Major depressive disorder, recurrent; anxiety disorder, unspecified; history of posttraumatic stress disorder. PLAN: The patient has been on Luvox 50 mg at bedtime for 3 days, we will increase to 75 mg at bedtime. Effexor has been stopped. He remains on trazodone, melatonin and Seroquel is 12.5 mg t.i.d. and we may need to increase the Seroquel gradually as a mood stabilizer. AMOL URBAN MD DR: YISSEL/jin JOB#: [id number] / [id number]
[2018-12-08 05:50] VITALS: BP 129/80
[2018-12-08] MEDS: FLUTICASONE 50MCG/NASAL SPRAY 16GM BOTTLE. NS SCH (09:00)
[2018-12-08] MEDS: INSULIN GLARGINE SYRINGE. SQ SCH ×2 (09:00→20:57)
[2018-12-08 09:35] LABS: BASO % 1 % (0-3); EOS # 0.1 x10^3/uL (0.0-0.7); EOS % 2 % (0-3); HEMATOCRIT 36.6 % (39.0-53.0); HEMOGLOBIN 11.9 g/dL (13.0-17.5); LYMPH # 1.3 x10^3/uL (1.0-4.8); LYMPH % 22 % (24-48); MEAN CORPUSCULAR HEMOGLOBIN 26 pg (25-35); MEAN CORPUSCULAR HGB CONC 33 g/dL (31-37); MEAN CORPUSCULAR VOLUME 78 fL (79-100); MONO # 0.4 x10^3/uL (0.0-1.1); MONO % 6 % (0-9); NEUT # 4.1 x10^3uL (1.8-7.7); NEUT % 69 % (31-73); PLATELET COUNT 263 x10^3/uL (140-400); RED BLOOD COUNT 4.66 x10^6/uL (4.30-5.70); RED CELL DISTRIBUTION WIDTH 18.1 % (11.5-14.5)
[2018-12-08] MEDS: CHOLECALCIFEROL (VITAMIN D3) 1,000 UNIT TABLET PO SCH (09:47)
[2018-12-08] MEDS: DOCUSATE SODIUM 100 MG CAPSULE PO SCH ×2 (09:47→19:39)
[2018-12-08] MEDS: FUROSEMIDE 20 MG TABLET PO SCH (09:47)
[2018-12-08] MEDS: ALLOPURINOL 300 MG TABLET. PO SCH (09:47)
[2018-12-08] MEDS: metFORMIN 500 MG TABLET PO SCH ×2 (09:47→17:15)
[2018-12-08] MEDS: FERROUS SULFATE 325 MG TABLET. PO SCH ×2 (09:48→16:26)
[2018-12-08] MEDS: LISINOPRIL 5 MG TABLET. PO SCH (09:48)
[2018-12-08] MEDS: levETIRAcetam 500 MG TABLET PO SCH ×2 (09:49→19:40)
[2018-12-08] MEDS: ASPIRIN ENTERIC COATED 81 MG TABLET.DR. PO SCH (09:49)
[2018-12-08] MEDS: ASCORBIC ACID 500 MG TABLET PO SCH ×2 (09:49→19:40)
[2018-12-08] MEDS: QUEtiapine 25 MG TABLET. PO SCH ×3 (09:50→17:15)
[2018-12-08 09:52] LABS: ALBUMIN 3.3 g/dL (3.4-5.0); ALBUMIN/GLOBULIN RATIO 0.8 (1.0-1.7); CREATININE 1.1 mg/dL (0.7-1.3); POTASSIUM 4.1 mmol/L (3.5-5.1); TOTAL BILIRUBIN 0.3 mg/dL (0.2-1.0); TOTAL PROTEIN 7.5 g/dL (6.4-8.2)
[2018-12-08] MEDS: INSULIN LISPRO 300 UNITS/3 ML VIAL. SQ SCH ×3 (09:53→17:00)
[2018-12-08] MEDS: DICLOFENAC SODIUM 1% TOPICAL GEL 100GM TUBE. TP PRN (10:53)
[2018-12-08 15:43] VITALS: BP 146/82
[2018-12-08] MEDS ORDERED: WARFARIN 4 MG TABLET. PO ONE (16:00)
[2018-12-08] MEDS ORDERED: WARFARIN 5 MG TABLET. PO SCH (16:00)
[2018-12-08] MEDS: traZODone 150 MG TABLET. PO SCH (19:39)
[2018-12-08] MEDS: TAMSULOSIN 0.4 MG CAP.ER.24H. PO SCH (19:39)
[2018-12-08] MEDS: rOPINIRole 1 MG TABLET. PO SCH (19:40)
[2018-12-08] MEDS: MELATONIN 3 MG TABLET PO SCH (19:41)
[2018-12-08] MEDS: SIMVASTATIN 20 MG TABLET PO SCH (19:41)
--- NOTE | 2018-12-08 21:07 | PDOC ---
Exam Note: Chinmay Note: Please also refer to the separate dictated note~for this date of service dictated separately.~Patient seen individually. Discussed the patient with Nursing staff reviewed the chart.~Reviewed interim history and current functioning. Reviewed vital signs,~Labs/ Radiology~and current medications noted below. Continue current treatment with the changes noted in the dictated addendum note Assessment: Vital Signs/I&O: Vital Signs Date Time Temp Pulse Resp B/P (MAP) Pulse Ox O2 Delivery O2 Flow Rate FiO2 12/08/18 15:43 97.3 89 20 146/82 (103) 94 12/08/18 10:16 Room Air I & O 12/07/18 12/07/18 12/08/18 14:59 22:59 06:59 Intake Total 960 ml 600 ml Balance 960 ml 600 ml Labs: Laboratory Tests Test 12/08/18 07:36 12/08/18 08:53 12/08/18 11:58 12/08/18 16:44 Glucose (Fingerstick) 154 mg/dL (70-99) H 184 mg/dL (70-99) H 149 mg/dL (70-99) H White Blood Count 6.0 x10^3/uL (4.0-11.0) Red Blood Count 4.66 x10^6/uL (4.30-5.70) Hemoglobin 11.9 g/dL (13.0-17.5) L Hematocrit 36.6 % (39.0-53.0) L Mean Corpuscular Volume 78 fL (79-100) L Mean Corpuscular Hemoglobin 26 pg (25-35) Mean Corpuscular Hemoglobin Concent 33 g/dL (31-37) Red Cell Distribution Width 18.1 % (11.5-14.5) H Platelet Count 263 x10^3/uL (140-400) Neutrophils (%) (Auto) 69 % (31-73) Lymphocytes (%) (Auto) 22 % (24-48) L Monocytes (%) (Auto) 6 % (0-9) Eosinophils (%) (Auto) 2 % (0-3) Basophils (%) (Auto) 1 % (0-3) Neutrophils # (Auto) 4.1 x10^3uL (1.8-7.7) Lymphocytes # (Auto) 1.3 x10^3/uL (1.0-4.8) Monocytes # (Auto) 0.4 x10^3/uL (0.0-1.1) Eosinophils # (Auto) 0.1 x10^3/uL (0.0-0.7) Basophils # (Auto) 0.0 x10^3/uL (0.0-0.2) Prothrombin Time 18.1 SEC (9.4-11.4) H Prothrombin Time INR 1.7 (0.9-1.1) H Sodium Level 139 mmol/L (136-145) Potassium Level 4.1 mmol/L (3.5-5.1) Chloride Level 103 mmol/L (98-107) Carbon Dioxide Level 24 mmol/L (21-32) Anion Gap 12 (6-14) Blood Urea Nitrogen 16 mg/dL (8-26) Creatinine 1.1 mg/dL (0.7-1.3) Estimated GFR (Cockcroft-Gault) 69.0 BUN/Creatinine Ratio 15 (6-20) Glucose Level 215 mg/dL (70-99) H Calcium Level 9.0 mg/dL (8.5-10.1) Total Bilirubin 0.3 mg/dL (0.2-1.0) Aspartate Amino Transferase (AST) 17 U/L (15-37) Alanine Aminotransferase (ALT) 28 U/L (16-63) Alkaline Phosphatase 128 U/L (46-116) H Total Protein 7.5 g/dL (6.4-8.2) Albumin 3.3 g/dL (3.4-5.0) L Albumin/Globulin Ratio 0.8 (1.0-1.7) L Test 12/08/18 19:39 Glucose (Fingerstick) 159 mg/dL (70-99) H Current Medications: Meds: Current Medications Medications (Trade) Dose Ordered Sig/Rashmi Route PRN Reason Start Time Stop Time Status Last Admin Dose Admin Fluvoxamine Maleate (Luvox) 75 mg QHS PO 12/08/18 21:00 12/08/18 19:45 Albuterol Sulfate (Ventolin) 2.5 mg PRN Q8HRS PRN NEB SHORTNESS OF BREATH 12/07/18 23:15 12/08/18 10:13 Warfarin Sodium (Coumadin) 8 mg 1X WARF ONCE PO 12/08/18 16:00 12/08/18 16:01 DC 12/08/18 16:26 I have reviewed the current psychotropics carefully including drug interactions. Risk benefit ratio favors no change other than as noted in my dictated progress note. Diagnosis: Problems: (1) Anxiety disorder (2) Impulse control disorder (3) Major depressive disorder, recurrent episode AMOL URBAN MD Dec 08, 2018 21:07
--- NOTE | 2018-12-09 00:46 | PN ---
DATE: 12/07/2018 PSYCHIATRIC PROGRESS NOTE This late entry 12/07/2018 covers elements not covered in my initial note. SUBJECTIVE: I met with the patient evening of 12/07/2018. The patient slept 7 hours previous night. He had a good day; though the day before he was upset with nursing staff, he was very compliant with the nursing staff on 12/07/2018. No agitation. No suicidal ideation. REVIEW OF SYSTEMS: Ambulation impaired, with walker, but he is in a wheelchair as I met with him. REVIEW OF SYSTEMS: No CV, , pulmonary, eye system symptoms on review. MENTAL STATUS EXAM: Reasonably oriented. Speech is coherent, abstraction fair, computation impaired, language function intact, attention span short. Mood and affect showing improvement, less labile. LABORATORY DATA: Reviewed. IMPRESSION: Major depressive disorder, recurrent; obsessive-compulsive disorder, anxiety disorder, unspecified; rule out mood disorder, unspecified. PLAN: Continue to gradually increase the Luvox. Maintain melatonin, trazodone, and Seroquel, which has been adjusted. MAN Miryam URBAN MD DR: YISSEL/jin JOB#: [id number] / [id number]
[2018-12-09 05:25] VITALS: BP 113/66
[2018-12-09] MEDS: INSULIN LISPRO 300 UNITS/3 ML VIAL. SQ SCH ×3 (08:00→17:00)
[2018-12-09] MEDS: FLUTICASONE 50MCG/NASAL SPRAY 16GM BOTTLE. NS SCH (09:00)
[2018-12-09] MEDS: ALLOPURINOL 300 MG TABLET. PO SCH (09:25)
[2018-12-09] MEDS: FERROUS SULFATE 325 MG TABLET. PO SCH ×2 (09:25→15:51)
[2018-12-09] MEDS: DOCUSATE SODIUM 100 MG CAPSULE PO SCH ×2 (09:25→20:00)
[2018-12-09] MEDS: FUROSEMIDE 20 MG TABLET PO SCH (09:25)
[2018-12-09] MEDS: CHOLECALCIFEROL (VITAMIN D3) 1,000 UNIT TABLET PO SCH (09:26)
[2018-12-09] MEDS: ASPIRIN ENTERIC COATED 81 MG TABLET.DR. PO SCH (09:26)
[2018-12-09] MEDS: metFORMIN 500 MG TABLET PO SCH ×2 (09:26→16:27)
[2018-12-09] MEDS: LISINOPRIL 5 MG TABLET. PO SCH (09:26)
[2018-12-09] MEDS: QUEtiapine 25 MG TABLET. PO SCH ×3 (09:26→16:27)
[2018-12-09] MEDS: ASCORBIC ACID 500 MG TABLET PO SCH ×2 (09:27→20:00)
[2018-12-09] MEDS: levETIRAcetam 500 MG TABLET PO SCH ×2 (09:27→20:00)
[2018-12-09] MEDS: INSULIN GLARGINE SYRINGE. SQ SCH ×2 (09:31→20:54)
[2018-12-09 15:46] VITALS: BP 110/75
[2018-12-09] MEDS ORDERED: WARFARIN 5 MG TABLET. PO ONE (16:00)
[2018-12-09] MEDS: traZODone 150 MG TABLET. PO SCH (19:59)
[2018-12-09] MEDS: rOPINIRole 1 MG TABLET. PO SCH (19:59)
[2018-12-09] MEDS: TAMSULOSIN 0.4 MG CAP.ER.24H. PO SCH (20:00)
[2018-12-09] MEDS: MELATONIN 3 MG TABLET PO SCH (20:00)
[2018-12-09] MEDS: SIMVASTATIN 20 MG TABLET PO SCH (20:00)
--- NOTE | 2018-12-09 22:00 | PDOC ---
Exam Note: Chinmay Note: Please also refer to the separate dictated note~for this date of service dictated separately.~Patient seen individually. Discussed the patient with Nursing staff reviewed the chart.~Reviewed interim history and current functioning. Reviewed vital signs,~Labs/ Radiology~and current medications noted below. Continue current treatment with the changes noted in the dictated addendum note Assessment: Vital Signs/I&O: Vital Signs Date Time Temp Pulse Resp B/P (MAP) Pulse Ox O2 Delivery O2 Flow Rate FiO2 12/09/18 15:46 97.5 74 17 110/75 (87) 98 Room Air I & O 12/08/18 12/08/18 12/09/18 14:59 22:59 06:59 Intake Total 600 ml 360 ml 240 ml Balance 600 ml 360 ml 240 ml Labs: Laboratory Tests Test 12/09/18 07:23 12/09/18 07:38 12/09/18 11:32 12/09/18 17:02 Prothrombin Time 18.6 SEC (9.4-11.4) H Prothrombin Time INR 1.8 (0.9-1.1) H Glucose (Fingerstick) 142 mg/dL (70-99) H 186 mg/dL (70-99) H 142 mg/dL (70-99) H Test 12/09/18 19:43 Glucose (Fingerstick) 205 mg/dL (70-99) H Current Medications: Meds: Current Medications Medications (Trade) Dose Ordered Sig/Rashmi Route PRN Reason Start Time Stop Time Status Last Admin Dose Admin Warfarin Sodium (Coumadin) 10 mg 1X WARF ONCE PO 12/09/18 16:00 12/09/18 16:01 DC 12/09/18 15:52 I have reviewed the current psychotropics carefully including drug interactions. Risk benefit ratio favors no change other than as noted in my dictated progress note. Diagnosis: Problems: (1) Anxiety disorder (2) Impulse control disorder (3) Major depressive disorder, recurrent episode AMOL URBAN MD Dec 09, 2018 22:00
[2018-12-10 06:00] VITALS: BP 100/58
[2018-12-10] MEDS: FERROUS SULFATE 325 MG TABLET. PO SCH ×2 (08:04→17:16)
[2018-12-10] MEDS: QUEtiapine 25 MG TABLET. PO SCH ×3 (08:05→17:16)
[2018-12-10] MEDS: ASCORBIC ACID 500 MG TABLET PO SCH ×2 (08:05→20:03)
[2018-12-10] MEDS: ASPIRIN ENTERIC COATED 81 MG TABLET.DR. PO SCH (08:06)
[2018-12-10] MEDS: CHOLECALCIFEROL (VITAMIN D3) 1,000 UNIT TABLET PO SCH (08:06)
[2018-12-10] MEDS: FUROSEMIDE 20 MG TABLET PO SCH (08:06)
[2018-12-10] MEDS: ALLOPURINOL 300 MG TABLET. PO SCH (08:06)
[2018-12-10] MEDS: DOCUSATE SODIUM 100 MG CAPSULE PO SCH ×2 (08:06→20:01)
[2018-12-10] MEDS: levETIRAcetam 500 MG TABLET PO SCH ×2 (08:07→20:02)
[2018-12-10] MEDS: metFORMIN 500 MG TABLET PO SCH ×2 (08:07→17:16)
[2018-12-10 08:10] VITALS: BP 106/72
[2018-12-10] MEDS: LISINOPRIL 5 MG TABLET. PO SCH (08:12)
[2018-12-10] MEDS: FLUTICASONE 50MCG/NASAL SPRAY 16GM BOTTLE. NS SCH (08:12)
[2018-12-10] MEDS: INSULIN LISPRO 300 UNITS/3 ML VIAL. SQ SCH ×3 (08:14→17:23)
[2018-12-10] MEDS: INSULIN GLARGINE SYRINGE. SQ SCH ×2 (08:27→20:27)
[2018-12-10] MEDS ORDERED: WARFARIN 10 MG TABLET. PO ONE (16:00)
[2018-12-10 16:55] VITALS: BP 98/62
[2018-12-10] MEDS: MELATONIN 3 MG TABLET PO SCH (20:01)
[2018-12-10] MEDS: traZODone 150 MG TABLET. PO SCH (20:02)
[2018-12-10] MEDS: TAMSULOSIN 0.4 MG CAP.ER.24H. PO SCH (20:02)
[2018-12-10] MEDS: SIMVASTATIN 20 MG TABLET PO SCH (20:03)
[2018-12-10] MEDS: rOPINIRole 1 MG TABLET. PO SCH (20:03)
--- NOTE | 2018-12-10 20:28 | PN ---
DATE: 12/08/2018 PSYCHIATRIC PROGRESS NOTE This late entry of 12/08/2018 covers elements not covered in my initial note. SUBJECTIVE: I met with the patient in the evening of 12/08/2018. The patient slept 7-1/4 hours previous night. Per nursing report, he has been somewhat whiny. Complained of right shoulder hurting, received p.r.n. for this with relief. He is compliant with medications. He has been encouraged to go to groups and in fact as I met with him in the evening, he was very verbal of how beneficial the groups were. REVIEW OF SYSTEMS: Ambulation impaired, in wheelchair. Complains of shoulder pain. No CV, , pulmonary, eye system symptoms on review. MENTAL STATUS EXAM: Reasonably oriented. Speech is coherent, abstraction fair, computation impaired, language function intact, attention span short. Mood and affect remain somewhat withdrawn, but improved. LABORATORY DATA: Reviewed. IMPRESSION: Unchanged from initial note. PLAN: No change from initial note. AMOL URBAN MD DR: YISSEL/jin JOB#: [id number] / [id number]
--- NOTE | 2018-12-10 21:44 | PDOC ---
Exam Note: Chinmay Note: Please also refer to the separate dictated note~for this date of service dictated separately.~Patient seen individually. Discussed the patient with Nursing staff reviewed the chart.~Reviewed interim history and current functioning. Reviewed vital signs,~Labs/ Radiology~and current medications noted below. Continue current treatment with the changes noted in the dictated addendum note Assessment: Vital Signs/I&O: Vital Signs Date Time Temp Pulse Resp B/P (MAP) Pulse Ox O2 Delivery O2 Flow Rate FiO2 12/10/18 16:55 97.6 74 18 98/62 (74) 97 12/09/18 15:46 Room Air I & O 12/09/18 12/09/18 12/10/18 15:00 23:00 07:00 Intake Total 1200 ml 480 ml 240 ml Balance 1200 ml 480 ml 240 ml Labs: Laboratory Tests Test 12/10/18 07:15 12/10/18 07:33 12/10/18 11:42 12/10/18 17:12 Prothrombin Time 20.5 SEC (9.4-11.4) H Prothrombin Time INR 2.0 (0.9-1.1) H Glucose (Fingerstick) 167 mg/dL (70-99) H 172 mg/dL (70-99) H 157 mg/dL (70-99) H Test 12/10/18 19:16 Glucose (Fingerstick) 193 mg/dL (70-99) H Current Medications: Meds: Current Medications Medications (Trade) Dose Ordered Sig/Rashmi Route PRN Reason Start Time Stop Time Status Last Admin Dose Admin Warfarin Sodium (Coumadin) 10 mg 1X WARF ONCE PO 12/10/18 16:00 12/10/18 16:01 DC 12/10/18 17:17 I have reviewed the current psychotropics carefully including drug interactions. Risk benefit ratio favors no change other than as noted in my dictated progress note. Diagnosis: Problems: (1) Anxiety disorder (2) Impulse control disorder (3) Major depressive disorder, recurrent episode AMOL URBAN MD Dec 10, 2018 21:44
--- NOTE | 2018-12-10 23:36 | PN ---
DATE: 12/09/2018 PSYCHIATRIC PROGRESS NOTE This late entry 12/09/2018 covers elements not covered in my initial note SUBJECTIVE: The patient was staffed at a treatment team meeting in the morning, seen individually in the evening. He is sleeping average 7 hours. Appetite is 75%-100%. Compliant with medications. He has been assisting others, demented patients, pushing the wheelchair of one of the patients who could not do it himself. His and son visited twice. REVIEW OF SYSTEMS: Ambulation impaired in wheelchair at times walker at other times, ad jose luis with other times with walker. No CV, , eye, ENT, pulmonary system symptoms on review. He is quite obese. MENTAL STATUS EXAMINATION: Reasonably oriented. Speech is coherent, abstraction fair, computation impaired. Language function intact. Attention span short. Mood and affect less depressed. He is quite verbal, forthcoming, felt he is doing better and interacting better in the group therapy. PLAN: Continue psychotropics from an initial note including Luvox, which is being increased to 75 mg a day, Seroquel 12.5 mg t.i.d., melatonin 6 mg at bedtime, trazodone 150 mg at bedtime. Rest unchanged for now. AMOL URBAN MD DR: YISSEL/jin JOB#: [id number] / [id number]
[2018-12-11 05:43] VITALS: BP 139/79
[2018-12-11] MEDS: INSULIN LISPRO 300 UNITS/3 ML VIAL. SQ SCH ×3 (08:00→17:00)
[2018-12-11] MEDS: ALLOPURINOL 300 MG TABLET. PO SCH (08:48)
[2018-12-11] MEDS: levETIRAcetam 500 MG TABLET PO SCH ×2 (08:48→19:56)
[2018-12-11] MEDS: ASPIRIN ENTERIC COATED 81 MG TABLET.DR. PO SCH (08:48)
[2018-12-11] MEDS: metFORMIN 500 MG TABLET PO SCH ×2 (08:48→15:38)
[2018-12-11] MEDS: QUEtiapine 25 MG TABLET. PO SCH ×3 (08:49→15:37)
[2018-12-11] MEDS: DOCUSATE SODIUM 100 MG CAPSULE PO SCH ×2 (08:49→19:55)
[2018-12-11] MEDS: ASCORBIC ACID 500 MG TABLET PO SCH ×2 (08:49→19:57)
[2018-12-11] MEDS: FERROUS SULFATE 325 MG TABLET. PO SCH ×2 (08:50→15:37)
[2018-12-11] MEDS: LISINOPRIL 5 MG TABLET. PO SCH (08:50)
[2018-12-11] MEDS: FUROSEMIDE 20 MG TABLET PO SCH (08:50)
[2018-12-11] MEDS: CHOLECALCIFEROL (VITAMIN D3) 1,000 UNIT TABLET PO SCH (08:50)
[2018-12-11] MEDS: INSULIN GLARGINE SYRINGE. SQ SCH ×2 (09:11→20:03)
[2018-12-11] MEDS: FLUTICASONE 50MCG/NASAL SPRAY 16GM BOTTLE. NS SCH (09:12)
[2018-12-11] MEDS: ACETAMINOPHEN 325 MG TABLET PO PRN (12:42)
[2018-12-11 15:27] VITALS: BP 101/68
[2018-12-11] MEDS ORDERED: WARFARIN 10 MG TABLET. PO ONE (16:00)
[2018-12-11] MEDS: traZODone 150 MG TABLET. PO SCH (19:55)
[2018-12-11] MEDS: MELATONIN 3 MG TABLET PO SCH (19:55)
--- NOTE | 2018-12-11 19:56 | PDOC ---
Exam Note: Chinmay Note: Please also refer to the separate dictated note~for this date of service dictated separately.~Patient seen individually. Discussed the patient with Nursing staff reviewed the chart.~Reviewed interim history and current functioning. Reviewed vital signs,~Labs/ Radiology~and current medications noted below. Continue current treatment with the changes noted in the dictated addendum note Assessment: Vital Signs/I&O: Vital Signs Date Time Temp Pulse Resp B/P (MAP) Pulse Ox O2 Delivery O2 Flow Rate FiO2 12/11/18 15:27 97.1 82 18 101/68 (79) 96 12/11/18 05:43 BiPAP/CPAP I & O 12/10/18 12/10/18 12/11/18 15:00 23:00 07:00 Intake Total 1200 ml 480 ml 650 ml Balance 1200 ml 480 ml 650 ml Labs: Laboratory Tests Test 12/11/18 07:27 12/11/18 08:00 12/11/18 11:34 12/11/18 17:21 Glucose (Fingerstick) 137 mg/dL (70-99) H 210 mg/dL (70-99) H 141 mg/dL (70-99) H Prothrombin Time 20.1 SEC (9.4-11.4) H Prothrombin Time INR 1.9 (0.9-1.1) H Test 12/11/18 19:19 Glucose (Fingerstick) 142 mg/dL (70-99) H Current Medications: Meds: Current Medications Medications (Trade) Dose Ordered Sig/Rashmi Route PRN Reason Start Time Stop Time Status Last Admin Dose Admin Warfarin Sodium (Coumadin) 10 mg 1X WARF ONCE PO 12/11/18 16:00 12/11/18 16:01 DC 12/11/18 15:39 I have reviewed the current psychotropics carefully including drug interactions. Risk benefit ratio favors no change other than as noted in my dictated progress note. Diagnosis: Problems: (1) Anxiety disorder (2) Impulse control disorder (3) Major depressive disorder, recurrent episode AMOL URBAN MD Dec 11, 2018 19:56
[2018-12-11] MEDS: SIMVASTATIN 20 MG TABLET PO SCH (19:57)
[2018-12-11] MEDS: rOPINIRole 1 MG TABLET. PO SCH (19:57)
[2018-12-11] MEDS: TAMSULOSIN 0.4 MG CAP.ER.24H. PO SCH (19:59)
[2018-12-12 06:00] VITALS: BP 116/74
[2018-12-12] MEDS: FUROSEMIDE 20 MG TABLET PO SCH (07:50)
[2018-12-12] MEDS: INSULIN LISPRO 300 UNITS/3 ML VIAL. SQ SCH ×3 (07:51→17:07)
[2018-12-12] MEDS: metFORMIN 500 MG TABLET PO SCH ×2 (07:51→16:48)
[2018-12-12] MEDS: FERROUS SULFATE 325 MG TABLET. PO SCH ×2 (07:51→16:48)
[2018-12-12] MEDS: ASPIRIN ENTERIC COATED 81 MG TABLET.DR. PO SCH (07:52)
[2018-12-12] MEDS: levETIRAcetam 500 MG TABLET PO SCH ×2 (07:52→19:45)
[2018-12-12] MEDS: DOCUSATE SODIUM 100 MG CAPSULE PO SCH ×2 (07:52→19:46)
[2018-12-12] MEDS: LISINOPRIL 5 MG TABLET. PO SCH (07:52)
[2018-12-12] MEDS: CHOLECALCIFEROL (VITAMIN D3) 1,000 UNIT TABLET PO SCH (07:53)
[2018-12-12] MEDS: ASCORBIC ACID 500 MG TABLET PO SCH ×2 (07:53→19:46)
[2018-12-12] MEDS: QUEtiapine 25 MG TABLET. PO SCH ×3 (07:53→16:48)
[2018-12-12] MEDS: ALLOPURINOL 300 MG TABLET. PO SCH (07:54)
[2018-12-12] MEDS: FLUTICASONE 50MCG/NASAL SPRAY 16GM BOTTLE. NS SCH (08:24)
[2018-12-12] MEDS: INSULIN GLARGINE SYRINGE. SQ SCH ×2 (09:31→20:24)
[2018-12-12] MEDS ORDERED: WARFARIN 10 MG TABLET. PO ONE (16:00)
[2018-12-12 16:11] VITALS: BP 116/78
[2018-12-12] MEDS: rOPINIRole 1 MG TABLET. PO SCH (19:30)
[2018-12-12] MEDS: traZODone 150 MG TABLET. PO SCH (19:30)
[2018-12-12] MEDS: MELATONIN 3 MG TABLET PO SCH (19:30)
[2018-12-12] MEDS: SIMVASTATIN 20 MG TABLET PO SCH (19:31)
[2018-12-12] MEDS: TAMSULOSIN 0.4 MG CAP.ER.24H. PO SCH (19:37)
--- NOTE | 2018-12-12 21:42 | PDOC ---
Exam Note: Chinmay Note: Please also refer to the separate dictated note~for this date of service dictated separately.~Patient seen individually. Discussed the patient with Nursing staff reviewed the chart.~Reviewed interim history and current functioning. Reviewed vital signs,~Labs/ Radiology~and current medications noted below. Continue current treatment with the changes noted in the dictated addendum note Assessment: Vital Signs/I&O: Vital Signs Date Time Temp Pulse Resp B/P (MAP) Pulse Ox O2 Delivery O2 Flow Rate FiO2 12/12/18 16:11 97.6 74 20 116/78 (91) 98 12/11/18 05:43 BiPAP/CPAP I & O 12/11/18 12/11/18 12/12/18 15:00 23:00 07:00 Intake Total 1200 ml 720 ml Balance 1200 ml 720 ml Labs: Laboratory Tests Test 12/12/18 07:41 12/12/18 07:45 12/12/18 11:36 12/12/18 16:47 Prothrombin Time 20.2 SEC (9.4-11.4) H Prothrombin Time INR 1.9 (0.9-1.1) H Glucose (Fingerstick) 148 mg/dL (70-99) H 180 mg/dL (70-99) H 196 mg/dL (70-99) H Test 12/12/18 19:08 Glucose (Fingerstick) 238 mg/dL (70-99) H Current Medications: Meds: Current Medications Medications (Trade) Dose Ordered Sig/Rashmi Route PRN Reason Start Time Stop Time Status Last Admin Dose Admin Warfarin Sodium (Coumadin) 10 mg 1X WARF ONCE PO 12/12/18 16:00 12/12/18 16:01 DC 12/12/18 16:48 I have reviewed the current psychotropics carefully including drug interactions. Risk benefit ratio favors no change other than as noted in my dictated progress note. Diagnosis: Problems: (1) Anxiety disorder (2) Impulse control disorder (3) Major depressive disorder, recurrent episode AMOL URBAN MD Dec 12, 2018 21:42
--- NOTE | 2018-12-12 21:48 | PN ---
DATE: 12/10/2018 PSYCHIATRIC PROGRESS NOTE This late entry 12/10/2018 covers elements not covered in my initial note. SUBJECTIVE: I met with the patient in the evening of 12/10/2018. The patient slept 7-3/4 hours previous night. He remains somewhat withdrawn, but less reactive. REVIEW OF SYSTEMS: Ambulation impaired, in wheelchair. No CV, , pulmonary, eye, ENT system symptoms on review. MENTAL STATUS EXAM: Reasonably oriented. Speech is coherent, abstraction fair, computation impaired, language function intact, attention span fair. Mood and affect is improved. We talked at length about ways to improve impulse control, very cooperative. LABORATORY DATA: Reviewed. IMPRESSION: Unchanged from initial note. PLAN: No change from initial note. MAN Miryam URBAN MD DR: YISSEL/jin JOB#: [id number] / [id number]
--- NOTE | 2018-12-12 21:50 | PN ---
DATE: 12/11/2018 PSYCHIATRIC PROGRESS NOTE This late entry 12/11/2018 covers elements not covered in my initial note. SUBJECTIVE: I met with the patient in the evening of 12/11/2018. The patient slept reasonably the night before 7-1/4 hours. He states another patient tripped and fell on him and hurt his knee, but he did not react to it and then felt there was no functional impairment consequent to this. REVIEW OF SYSTEMS: Ambulation impaired, in wheelchair. No CV, , pulmonary, eye, ENT system symptoms on review. MENTAL STATUS EXAM: Reasonably oriented. Speech is coherent, abstraction fair, computation impaired, language function intact, attention span short. Mood and affect is less withdrawn, less labile. LABORATORY DATA: Reviewed. IMPRESSION: Unchanged from initial note. PLAN: No change from initial note. MAN Miryam URBAN MD DR: YISSEL/jin JOB#: [id number] / [id number]
[2018-12-13 06:12] VITALS: BP 141/86
[2018-12-13] MEDS: ALLOPURINOL 300 MG TABLET. PO SCH (07:59)
[2018-12-13] MEDS: QUEtiapine 25 MG TABLET. PO SCH ×3 (08:00→17:06)
[2018-12-13] MEDS: metFORMIN 500 MG TABLET PO SCH ×2 (08:00→17:06)
[2018-12-13] MEDS: FERROUS SULFATE 325 MG TABLET. PO SCH ×2 (08:00→17:06)
[2018-12-13] MEDS: ASCORBIC ACID 500 MG TABLET PO SCH ×2 (08:01→20:05)
[2018-12-13] MEDS: CHOLECALCIFEROL (VITAMIN D3) 1,000 UNIT TABLET PO SCH (08:01)
[2018-12-13] MEDS: ASPIRIN ENTERIC COATED 81 MG TABLET.DR. PO SCH (08:01)
[2018-12-13] MEDS: FUROSEMIDE 20 MG TABLET PO SCH (08:02)
[2018-12-13] MEDS: levETIRAcetam 500 MG TABLET PO SCH ×2 (08:02→20:07)
[2018-12-13] MEDS: LISINOPRIL 5 MG TABLET. PO SCH (08:02)
[2018-12-13] MEDS: DOCUSATE SODIUM 100 MG CAPSULE PO SCH ×2 (08:02→20:07)
[2018-12-13] MEDS: INSULIN LISPRO 300 UNITS/3 ML VIAL. SQ SCH ×3 (08:07→17:00)
[2018-12-13] MEDS: NYSTATIN TOPICAL POWDER 15GM BOTTLE. TP SCH ×2 (08:08→20:54)
[2018-12-13] MEDS: FLUTICASONE 50MCG/NASAL SPRAY 16GM BOTTLE. NS SCH (08:08)
[2018-12-13] MEDS: INSULIN GLARGINE SYRINGE. SQ SCH ×2 (09:35→20:45)
[2018-12-13] MEDS ORDERED: WARFARIN 10 MG TABLET. PO ONE (16:00)
[2018-12-13 16:22] VITALS: BP 108/72
[2018-12-13] MEDS: rOPINIRole 1 MG TABLET. PO SCH (20:05)
[2018-12-13] MEDS: MELATONIN 3 MG TABLET PO SCH (20:06)
[2018-12-13] MEDS: traZODone 150 MG TABLET. PO SCH (20:07)
[2018-12-13] MEDS: SIMVASTATIN 20 MG TABLET PO SCH (20:07)
[2018-12-13] MEDS: TAMSULOSIN 0.4 MG CAP.ER.24H. PO SCH (20:07)
--- NOTE | 2018-12-13 21:39 | PDOC ---
Exam Note: Chinmay Note: Please also refer to the separate dictated note~for this date of service dictated separately.~Patient seen individually. Discussed the patient with Nursing staff reviewed the chart.~Reviewed interim history and current functioning. Reviewed vital signs,~Labs/ Radiology~and current medications noted below. Continue current treatment with the changes noted in the dictated addendum note Assessment: Vital Signs/I&O: Vital Signs Date Time Temp Pulse Resp B/P (MAP) Pulse Ox O2 Delivery O2 Flow Rate FiO2 12/13/18 16:22 97.2 65 20 108/72 (84) 99 12/13/18 06:12 BiPAP/CPAP I & O 12/12/18 12/12/18 12/13/18 14:59 22:59 06:59 Intake Total 840 ml 240 ml 420 ml Balance 840 ml 240 ml 420 ml Labs: Laboratory Tests Test 12/13/18 07:07 12/13/18 07:39 12/13/18 11:34 12/13/18 17:16 Prothrombin Time 22.3 SEC (9.4-11.4) H Prothrombin Time INR 2.1 (0.9-1.1) H Glucose (Fingerstick) 167 mg/dL (70-99) H 136 mg/dL (70-99) H 129 mg/dL (70-99) H Test 12/13/18 19:33 Glucose (Fingerstick) 180 mg/dL (70-99) H Current Medications: Meds: Current Medications Medications (Trade) Dose Ordered Sig/Rashmi Route PRN Reason Start Time Stop Time Status Last Admin Dose Admin Nystatin (Nystop) 1 kash BID TP 12/13/18 09:00 12/13/18 20:54 Warfarin Sodium (Coumadin) 10 mg 1X WARF ONCE PO 12/13/18 16:00 12/13/18 16:01 DC 12/13/18 17:07 I have reviewed the current psychotropics carefully including drug interactions. Risk benefit ratio favors no change other than as noted in my dictated progress note. Diagnosis: Problems: (1) Anxiety disorder (2) Impulse control disorder (3) Major depressive disorder, recurrent episode AMOL URBAN MD Dec 13, 2018 21:39
--- NOTE | 2018-12-14 04:42 | PN ---
DATE: 12/12/2018 PSYCHIATRIC PROGRESS NOTE This late entry 12/12/2018 covers elements not covered in my initial note. SUBJECTIVE: I met with the patient evening of 12/12/2018. The patient slept 7-3/4 hours previous night. He remains fairly oriented, little anxious, but states he has dealt with the frustrations on the unit without letting it affect him. REVIEW OF SYSTEMS: Ambulation impaired with walker. No CV, , pulmonary, eye, ENT system symptoms on review. MENTAL STATUS EXAM: Reasonably oriented. Speech is coherent, as I met with him at length. Abstraction fair, computation impaired, language function intact, attention span short. Mood and affect is improved. No suicidal ideation. LABORATORY DATA: Reviewed. IMPRESSION: Unchanged from initial note. PLAN: No change from initial note. MAN Miryam URBAN MD DR: YISSEL/jin JOB#: [id number] / [id number]
[2018-12-14 05:59] VITALS: BP 113/75
[2018-12-14] MEDS: INSULIN LISPRO 300 UNITS/3 ML VIAL. SQ SCH ×3 (08:00→17:19)
[2018-12-14] MEDS: ALLOPURINOL 300 MG TABLET. PO SCH (08:12)
[2018-12-14] MEDS: QUEtiapine 25 MG TABLET. PO SCH ×3 (08:12→16:22)
[2018-12-14] MEDS: FUROSEMIDE 20 MG TABLET PO SCH (08:13)
[2018-12-14] MEDS: FERROUS SULFATE 325 MG TABLET. PO SCH ×2 (08:13→16:20)
[2018-12-14] MEDS: LISINOPRIL 5 MG TABLET. PO SCH (08:13)
[2018-12-14] MEDS: ASPIRIN ENTERIC COATED 81 MG TABLET.DR. PO SCH (08:13)
[2018-12-14] MEDS: CHOLECALCIFEROL (VITAMIN D3) 1,000 UNIT TABLET PO SCH (08:13)
[2018-12-14] MEDS: ASCORBIC ACID 500 MG TABLET PO SCH ×2 (08:13→19:58)
[2018-12-14] MEDS: DOCUSATE SODIUM 100 MG CAPSULE PO SCH ×2 (08:13→19:58)
[2018-12-14] MEDS: levETIRAcetam 500 MG TABLET PO SCH ×2 (08:14→19:57)
[2018-12-14] MEDS: metFORMIN 500 MG TABLET PO SCH ×2 (08:14→16:21)
[2018-12-14] MEDS: NYSTATIN TOPICAL POWDER 15GM BOTTLE. TP SCH ×2 (08:15→19:59)
[2018-12-14] MEDS: FLUTICASONE 50MCG/NASAL SPRAY 16GM BOTTLE. NS SCH (09:23)
[2018-12-14] MEDS: INSULIN GLARGINE SYRINGE. SQ SCH ×2 (09:25→20:33)
[2018-12-14 15:49] VITALS: BP 105/69
[2018-12-14] MEDS ORDERED: WARFARIN 5 MG TABLET. PO ONE (16:00)
[2018-12-14] MEDS ORDERED: WARFARIN 4 MG TABLET. PO ONE (16:00)
[2018-12-14] MEDS: rOPINIRole 1 MG TABLET. PO SCH (19:57)
[2018-12-14] MEDS: traZODone 150 MG TABLET. PO SCH (19:58)
[2018-12-14] MEDS: TAMSULOSIN 0.4 MG CAP.ER.24H. PO SCH (19:58)
[2018-12-14] MEDS: SIMVASTATIN 20 MG TABLET PO SCH (19:58)
[2018-12-14] MEDS: MELATONIN 3 MG TABLET PO SCH (19:58)
--- NOTE | 2018-12-14 21:57 | PDOC ---
Exam Note: [place] Note: Please also refer to the separate dictated note~for this date of service dictated separately.~Patient seen individually. Discussed the patient with Nursing staff reviewed the chart.~Reviewed interim history and current functioning. Reviewed vital signs,~Labs/ Radiology~and current medications noted below. Continue current treatment with the changes noted in the dictated addendum note Assessment: Vital Signs/I&O: Vital Signs Date Time Temp Pulse Resp B/P (MAP) Pulse Ox O2 Delivery O2 Flow Rate FiO2 12/14/18 15:49 98.9 81 20 105/69 (81) 95 Room Air I & O 12/13/18 12/13/18 12/14/18 15:00 23:00 07:00 Intake Total 840 ml 240 ml 240 ml Balance 840 ml 240 ml 240 ml Labs: Laboratory Tests Test 12/14/18 07:37 12/14/18 11:27 12/14/18 11:36 12/14/18 16:41 Glucose (Fingerstick) 150 mg/dL (70-99) H 170 mg/dL (70-99) H 205 mg/dL (70-99) H Prothrombin Time 26.8 SEC (9.4-11.4) H Prothrombin Time INR 2.6 (0.9-1.1) H Test 12/14/18 19:16 Glucose (Fingerstick) 199 mg/dL (70-99) H Current Medications: Meds: Current Medications Medications (Trade) Dose Ordered Sig/Rashmi Route PRN Reason Start Time Stop Time Status Last Admin Dose Admin Warfarin Sodium (Coumadin) 4 mg 1X WARF ONCE PO 12/14/18 16:00 12/14/18 16:01 DC 12/14/18 16:21 Warfarin Sodium (Coumadin) 5 mg 1X WARF ONCE PO 12/14/18 16:00 12/14/18 16:01 DC 12/14/18 16:21 I have reviewed the current psychotropics carefully including drug interactions. Risk benefit ratio favors no change other than as noted in my dictated progress note. Diagnosis: Problems: (1) Anxiety disorder (2) Impulse control disorder (3) Major depressive disorder, recurrent episode AMOL URBAN MD Dec 14, 2018 21:57
--- NOTE | 2018-12-15 00:18 | PN ---
DATE: 12/13/2018 PSYCHIATRIC PROGRESS NOTE This late entry 12/13/2018, covers elements not covered in my initial note. SUBJECTIVE: I met with the patient evening of 12/13/2018. The patient slept 6 hours previous night. Overall, the patient is doing better per nursing report, but he gets a little anxious at times. REVIEW OF SYSTEMS: Ambulation impaired, in wheelchair; at times, ambulates on his own with walker. No CV, , pulmonary, eye, ENT system symptoms on review. He was very verbal, open and forthcoming talking about ways he uses to deal with difficult situations including humor and focusing on how he responds to situation really makes a difference off the intensity of his perception of the situation. MENTAL STATUS EXAM: Reasonably oriented. Speech coherent, abstraction fair, computation somewhat impaired, language function intact, attention span short. Mood and affect still depressed, but improved, less anxious. LABORATORY DATA: Reviewed. IMPRESSION: Unchanged from initial note. PLAN: No change from initial note. AMOL URBAN MD DR: YISSEL/jin JOB#: [id number] / [id number]
[2018-12-15 05:53] VITALS: BP 135/82
[2018-12-15 07:38] LABS: BASO % 1 % (0-3); EOS # 0.2 x10^3/uL (0.0-0.7); EOS % 3 % (0-3); HEMATOCRIT 34.8 % (39.0-53.0); HEMOGLOBIN 11.4 g/dL (13.0-17.5); LYMPH # 1.5 x10^3/uL (1.0-4.8); LYMPH % 23 % (24-48); MEAN CORPUSCULAR HEMOGLOBIN 26 pg (25-35); MEAN CORPUSCULAR HGB CONC 33 g/dL (31-37); MEAN CORPUSCULAR VOLUME 78 fL (79-100); MONO # 0.4 x10^3/uL (0.0-1.1); MONO % 7 % (0-9); NEUT # 4.2 x10^3uL (1.8-7.7); NEUT % 67 % (31-73); PLATELET COUNT 275 x10^3/uL (140-400); RED BLOOD COUNT 4.44 x10^6/uL (4.30-5.70); RED CELL DISTRIBUTION WIDTH 17.7 % (11.5-14.5); WHITE BLOOD COUNT 6.3 x10^3/uL (4.0-11.0)
[2018-12-15 07:48] LABS: ALBUMIN 3.1 g/dL (3.4-5.0); ALBUMIN/GLOBULIN RATIO 0.8 (1.0-1.7); CALCIUM 9.1 mg/dL (8.5-10.1); CREATININE 1.1 mg/dL (0.7-1.3); POTASSIUM 4.3 mmol/L (3.5-5.1); TOTAL BILIRUBIN 0.2 mg/dL (0.2-1.0)
[2018-12-15] MEDS: FERROUS SULFATE 325 MG TABLET. PO SCH ×2 (07:50→17:01)
[2018-12-15] MEDS: metFORMIN 500 MG TABLET PO SCH ×2 (07:51→17:01)
[2018-12-15] MEDS: levETIRAcetam 500 MG TABLET PO SCH ×2 (07:51→19:45)
[2018-12-15] MEDS: DOCUSATE SODIUM 100 MG CAPSULE PO SCH ×2 (07:51→19:45)
[2018-12-15] MEDS: ASPIRIN ENTERIC COATED 81 MG TABLET.DR. PO SCH (07:51)
[2018-12-15] MEDS: QUEtiapine 25 MG TABLET. PO SCH ×3 (07:51→17:01)
[2018-12-15] MEDS: FUROSEMIDE 20 MG TABLET PO SCH (07:52)
[2018-12-15] MEDS: ALLOPURINOL 300 MG TABLET. PO SCH (07:52)
[2018-12-15] MEDS: CHOLECALCIFEROL (VITAMIN D3) 1,000 UNIT TABLET PO SCH (07:52)
[2018-12-15] MEDS: ASCORBIC ACID 500 MG TABLET PO SCH ×2 (07:52→19:45)
[2018-12-15] MEDS: LISINOPRIL 5 MG TABLET. PO SCH (07:53)
[2018-12-15] MEDS: INSULIN LISPRO 300 UNITS/3 ML VIAL. SQ SCH ×3 (07:53→17:00)
[2018-12-15] MEDS: FLUTICASONE 50MCG/NASAL SPRAY 16GM BOTTLE. NS SCH (07:56)
[2018-12-15] MEDS: INSULIN GLARGINE SYRINGE. SQ SCH ×2 (07:57→20:38)
[2018-12-15] MEDS: NYSTATIN TOPICAL POWDER 15GM BOTTLE. TP SCH ×2 (09:00→19:50)
[2018-12-15 15:49] VITALS: BP 132/79
[2018-12-15] MEDS ORDERED: WARFARIN 5 MG TABLET. PO ONE (16:00)
[2018-12-15] MEDS ORDERED: WARFARIN 4 MG TABLET. PO ONE (16:00)
[2018-12-15] MEDS: rOPINIRole 1 MG TABLET. PO SCH (19:44)
[2018-12-15] MEDS: traZODone 150 MG TABLET. PO SCH (19:44)
[2018-12-15] MEDS: SIMVASTATIN 20 MG TABLET PO SCH (19:45)
[2018-12-15] MEDS: MELATONIN 3 MG TABLET PO SCH (19:46)
[2018-12-15] MEDS: TAMSULOSIN 0.4 MG CAP.ER.24H. PO SCH (19:46)
--- NOTE | 2018-12-15 22:01 | PDOC ---
Exam Note: Chin[place] Note: Please also refer to the separate dictated note~for this date of service dictated separately.~Patient seen individually. Discussed the patient with Nursing staff reviewed the chart.~Reviewed interim history and current functioning. Reviewed vital signs,~Labs/ Radiology~and current medications noted below. Continue current treatment with the changes noted in the dictated addendum note Assessment: Vital Signs/I&O: Vital Signs Date Time Temp Pulse Resp B/P (MAP) Pulse Ox O2 Delivery O2 Flow Rate FiO2 12/15/18 15:49 97.8 66 22 132/79 (96) 95 12/14/18 15:49 Room Air I & O 12/14/18 12/14/18 12/15/18 15:00 23:00 07:00 Intake Total 1080 ml 360 ml 240 ml Balance 1080 ml 360 ml 240 ml Labs: Laboratory Tests Test 12/15/18 06:21 12/15/18 07:12 12/15/18 11:38 12/15/18 16:34 White Blood Count 6.3 x10^3/uL (4.0-11.0) Red Blood Count 4.44 x10^6/uL (4.30-5.70) Hemoglobin 11.4 g/dL (13.0-17.5) L Hematocrit 34.8 % (39.0-53.0) L Mean Corpuscular Volume 78 fL (79-100) L Mean Corpuscular Hemoglobin 26 pg (25-35) Mean Corpuscular Hemoglobin Concent 33 g/dL (31-37) Red Cell Distribution Width 17.7 % (11.5-14.5) H Platelet Count 275 x10^3/uL (140-400) Neutrophils (%) (Auto) 67 % (31-73) Lymphocytes (%) (Auto) 23 % (24-48) L Monocytes (%) (Auto) 7 % (0-9) Eosinophils (%) (Auto) 3 % (0-3) Basophils (%) (Auto) 1 % (0-3) Neutrophils # (Auto) 4.2 x10^3uL (1.8-7.7) Lymphocytes # (Auto) 1.5 x10^3/uL (1.0-4.8) Monocytes # (Auto) 0.4 x10^3/uL (0.0-1.1) Eosinophils # (Auto) 0.2 x10^3/uL (0.0-0.7) Basophils # (Auto) 0.0 x10^3/uL (0.0-0.2) Prothrombin Time 25.6 SEC (9.4-11.4) H Prothrombin Time INR 2.5 (0.9-1.1) H Sodium Level 141 mmol/L (136-145) Potassium Level 4.3 mmol/L (3.5-5.1) Chloride Level 104 mmol/L (98-107) Carbon Dioxide Level 28 mmol/L (21-32) Anion Gap 9 (6-14) Blood Urea Nitrogen 14 mg/dL (8-26) Creatinine 1.1 mg/dL (0.7-1.3) Estimated GFR (Cockcroft-Gault) 69.0 BUN/Creatinine Ratio 13 (6-20) Glucose Level 150 mg/dL (70-99) H Calcium Level 9.1 mg/dL (8.5-10.1) Total Bilirubin 0.2 mg/dL (0.2-1.0) Aspartate Amino Transferase (AST) 14 U/L (15-37) L Alanine Aminotransferase (ALT) 23 U/L (16-63) Alkaline Phosphatase 111 U/L (46-116) Total Protein 7.0 g/dL (6.4-8.2) Albumin 3.1 g/dL (3.4-5.0) L Albumin/Globulin Ratio 0.8 (1.0-1.7) L Glucose (Fingerstick) 150 mg/dL (70-99) H 180 mg/dL (70-99) H 174 mg/dL (70-99) H Test 12/15/18 19:09 Glucose (Fingerstick) 168 mg/dL (70-99) H Current Medications: Meds: Current Medications Medications (Trade) Dose Ordered Sig/Rashmi Route PRN Reason Start Time Stop Time Status Last Admin Dose Admin Warfarin Sodium (Coumadin) 4 mg 1X WARF ONCE PO 12/15/18 16:00 12/15/18 16:01 DC 12/15/18 17:02 Warfarin Sodium (Coumadin) 5 mg 1X WARF ONCE PO 12/15/18 16:00 12/15/18 16:01 DC 12/15/18 17:02 I have reviewed the current psychotropics carefully including drug interactions. Risk benefit ratio favors no change other than as noted in my dictated progress note. Diagnosis: Problems: (1) Anxiety disorder (2) Impulse control disorder (3) Major depressive disorder, recurrent episode AMOL URBAN MD Dec 15, 2018 22:01
--- NOTE | 2018-12-15 22:39 | PN ---
DATE: 12/14/2018 This late entry 12/14/2018 covers elements not covered in my initial note. SUBJECTIVE: I met with the patient evening of 12/14/2018. The patient slept 6-3/4 hours previous night per BUDDY Coelho. He shaved his head previous night with the assistance of a staff member and I questioned him at length about this. He states he has made a total turn around in his personality disposition, ways to handle stress and wanted a physical remembrance for this as well. Compliant with medication assessment. He has been journaling quite well, focusing on positive about himself and looking for 30 of them. REVIEW OF SYSTEMS: Ambulation impaired, in wheelchair. No CV, , pulmonary, eye, ENT system symptoms on review. Gait somewhat unsteady. MENTAL STATUS EXAM: Oriented reasonably. Speech is coherent, abstraction fair, computation impaired, language function intact, attention span short. Mood and affect is improved. LABORATORY DATA: Reviewed. IMPRESSION: Unchanged from initial note. PLAN: No change from initial note. MAN Miyram URBAN MD DR: YISSEL/jin JOB#: [id number] / [id number]
[2018-12-16 05:44] VITALS: BP 105/68
[2018-12-16] MEDS: levETIRAcetam 500 MG TABLET PO SCH ×2 (07:56→20:01)
[2018-12-16] MEDS: DOCUSATE SODIUM 100 MG CAPSULE PO SCH ×2 (07:56→20:00)
[2018-12-16] MEDS: ASPIRIN ENTERIC COATED 81 MG TABLET.DR. PO SCH (07:56)
[2018-12-16] MEDS: FERROUS SULFATE 325 MG TABLET. PO SCH ×2 (07:56→16:19)
[2018-12-16] MEDS: ALLOPURINOL 300 MG TABLET. PO SCH (07:56)
[2018-12-16] MEDS: metFORMIN 500 MG TABLET PO SCH ×2 (07:56→16:18)
[2018-12-16] MEDS: FUROSEMIDE 20 MG TABLET PO SCH (07:57)
[2018-12-16] MEDS: QUEtiapine 25 MG TABLET. PO SCH ×3 (07:57→16:19)
[2018-12-16] MEDS: LISINOPRIL 5 MG TABLET. PO SCH (07:57)
[2018-12-16] MEDS: CHOLECALCIFEROL (VITAMIN D3) 1,000 UNIT TABLET PO SCH (07:58)
[2018-12-16] MEDS: ASCORBIC ACID 500 MG TABLET PO SCH ×2 (07:58→20:01)
[2018-12-16] MEDS: INSULIN LISPRO 300 UNITS/3 ML VIAL. SQ SCH ×3 (07:59→17:00)
[2018-12-16] MEDS: NYSTATIN TOPICAL POWDER 15GM BOTTLE. TP SCH ×2 (08:01→21:00)
[2018-12-16] MEDS: FLUTICASONE 50MCG/NASAL SPRAY 16GM BOTTLE. NS SCH (08:01)
[2018-12-16] MEDS: INSULIN GLARGINE SYRINGE. SQ SCH ×2 (09:12→20:58)
[2018-12-16] MEDS: ACETAMINOPHEN 325 MG TABLET PO PRN (09:20)
[2018-12-16] MEDS: DICLOFENAC SODIUM 1% TOPICAL GEL 100GM TUBE. TP PRN (11:11)
[2018-12-16] MEDS ORDERED: WARFARIN 5 MG TABLET. PO ONE (16:00)
[2018-12-16] MEDS ORDERED: WARFARIN 4 MG TABLET. PO ONE (16:00)
[2018-12-16 16:41] VITALS: BP 114/70
[2018-12-16] MEDS: TAMSULOSIN 0.4 MG CAP.ER.24H. PO SCH (20:00)
[2018-12-16] MEDS: MELATONIN 3 MG TABLET PO SCH (20:01)
[2018-12-16] MEDS: SIMVASTATIN 20 MG TABLET PO SCH (20:01)
[2018-12-16] MEDS: rOPINIRole 1 MG TABLET. PO SCH (20:01)
[2018-12-16] MEDS: traZODone 150 MG TABLET. PO SCH (20:01)
--- NOTE | 2018-12-16 21:41 | PDOC ---
Exam Note: [place] Note: Please also refer to the separate dictated note~for this date of service dictated separately.~Patient seen individually. Discussed the patient with Nursing staff reviewed the chart.~Reviewed interim history and current functioning. Reviewed vital signs,~Labs/ Radiology~and current medications noted below. Continue current treatment with the changes noted in the dictated addendum note Assessment: Vital Signs/I&O: Vital Signs Date Time Temp Pulse Resp B/P (MAP) Pulse Ox O2 Delivery O2 Flow Rate FiO2 12/16/18 16:41 98.1 67 18 114/70 (85) 97 12/14/18 15:49 Room Air I & O 12/15/18 12/15/18 12/16/18 14:59 22:59 06:59 Intake Total 600 ml 360 ml 120 ml Balance 600 ml 360 ml 120 ml Labs: Laboratory Tests Test 12/16/18 02:07 12/16/18 07:00 12/16/18 07:44 12/16/18 12:01 Glucose (Fingerstick) 105 mg/dL (70-99) H 143 mg/dL (70-99) H 188 mg/dL (70-99) H Prothrombin Time 24.5 SEC (9.4-11.4) H Prothrombin Time INR 2.4 (0.9-1.1) H Test 12/16/18 16:41 12/16/18 19:13 Glucose (Fingerstick) 139 mg/dL (70-99) H 184 mg/dL (70-99) H Current Medications: Meds: Current Medications Medications (Trade) Dose Ordered Sig/Rashmi Route PRN Reason Start Time Stop Time Status Last Admin Dose Admin Warfarin Sodium (Coumadin) 4 mg 1X WARF ONCE PO 12/16/18 16:00 12/16/18 16:01 DC 12/16/18 16:19 Warfarin Sodium (Coumadin) 5 mg 1X WARF ONCE PO 12/16/18 16:00 12/16/18 16:01 DC 12/16/18 16:19 I have reviewed the current psychotropics carefully including drug interactions. Risk benefit ratio favors no change other than as noted in my dictated progress note. Diagnosis: Problems: (1) Anxiety disorder (2) Impulse control disorder (3) Major depressive disorder, recurrent episode AMOL URBAN MD Dec 16, 2018 21:41
[2018-12-17] MEDS ORDERED: ACET325T9 PO (01:47)
[2018-12-17] MEDS ORDERED: FERR325T72 PO (01:49)
[2018-12-17] MEDS ORDERED: DEXT31GE5 PO (02:08)
[2018-12-17] MEDS ORDERED: MAG30ORA2 PO (02:10)
[2018-12-17] MEDS ORDERED: MAGN2400 PO (02:11)
[2018-12-17] MEDS ORDERED: LISI-338 PO (02:13)
[2018-12-17] MEDS ORDERED: METH29OI TP (02:14)
[2018-12-17] MEDS ORDERED: NYST60PO TP (02:15)
[2018-12-17] MEDS ORDERED: QUET25TA PO (02:18)
[2018-12-17] MEDS ORDERED: SIMV20TA3 PO (02:19)
[2018-12-17] MEDS ORDERED: FLUV50TA2 PO (02:20)
[2018-12-17] MEDS ORDERED: INSU100I11 SQ (02:25)
[2018-12-17 05:50] VITALS: BP 124/72
[2018-12-17] MEDS: FLUTICASONE 50MCG/NASAL SPRAY 16GM BOTTLE. NS SCH (07:45)
[2018-12-17] MEDS: FERROUS SULFATE 325 MG TABLET. PO SCH (07:45)
[2018-12-17] MEDS: FUROSEMIDE 20 MG TABLET PO SCH (07:45)
[2018-12-17] MEDS: metFORMIN 500 MG TABLET PO SCH (07:45)
[2018-12-17] MEDS: ASPIRIN ENTERIC COATED 81 MG TABLET.DR. PO SCH (07:46)
[2018-12-17] MEDS: DOCUSATE SODIUM 100 MG CAPSULE PO SCH (07:46)
[2018-12-17 07:47] VITALS: BP 124/72
[2018-12-17] MEDS: QUEtiapine 25 MG TABLET. PO SCH ×2 (07:47→12:07)
[2018-12-17] MEDS: levETIRAcetam 500 MG TABLET PO SCH (07:47)
[2018-12-17] MEDS: LISINOPRIL 5 MG TABLET. PO SCH (07:47)
[2018-12-17] MEDS: CHOLECALCIFEROL (VITAMIN D3) 1,000 UNIT TABLET PO SCH (07:48)
[2018-12-17] MEDS: ASCORBIC ACID 500 MG TABLET PO SCH (07:48)
[2018-12-17] MEDS: ALLOPURINOL 300 MG TABLET. PO SCH (07:48)
[2018-12-17] MEDS: NYSTATIN TOPICAL POWDER 15GM BOTTLE. TP SCH (07:48)
[2018-12-17] MEDS: INSULIN LISPRO 300 UNITS/3 ML VIAL. SQ SCH ×2 (07:48→12:06)
[2018-12-17] MEDS: INSULIN GLARGINE SYRINGE. SQ SCH (09:00)
[2018-12-17] MEDS ORDERED: WARFARIN 4 MG TABLET. PO ONE (14:00)
[2018-12-17] MEDS ORDERED: WARFARIN 5 MG TABLET. PO ONE (14:00)
--- NOTE | 2018-12-17 21:54 | PDOC ---
Exam Note: [place] Note: Please also refer to the separate dictated note~for this date of service dictated separately.~Patient seen individually. Discussed the patient with Nursing staff reviewed the chart.~Reviewed interim history and current functioning. Reviewed vital signs,~Labs/ Radiology~and current medications noted below. Continue current treatment with the changes noted in the dictated addendum note Assessment: Vital Signs/I&O: Vital Signs Date Time Temp Pulse Resp B/P (MAP) Pulse Ox O2 Delivery O2 Flow Rate FiO2 12/17/18 07:48 67 124/72 12/17/18 05:50 97.3 20 97 12/14/18 15:49 Room Air I & O 12/16/18 12/16/18 12/17/18 15:00 23:00 07:00 Intake Total 840 ml 240 ml 240 ml Balance 840 ml 240 ml 240 ml Labs: Laboratory Tests Test 12/17/18 07:00 12/17/18 07:27 12/17/18 11:32 Prothrombin Time 27.6 SEC (9.4-11.4) H Prothrombin Time INR 2.7 (0.9-1.1) H Glucose (Fingerstick) 149 mg/dL (70-99) H 220 mg/dL (70-99) H Current Medications: Meds: Current Medications Medications (Trade) Dose Ordered Sig/Rashmi Route PRN Reason Start Time Stop Time Status Last Admin Dose Admin Warfarin Sodium (Coumadin) 4 mg 1X WARF ONCE PO 12/17/18 14:00 12/17/18 14:01 DC 12/17/18 14:13 Warfarin Sodium (Coumadin) 5 mg 1X WARF ONCE PO 12/17/18 14:00 12/17/18 14:01 DC 12/17/18 14:13 I have reviewed the current psychotropics carefully including drug interactions. Risk benefit ratio favors no change other than as noted in my dictated progress note. Diagnosis: Problems: (1) Anxiety disorder (2) Impulse control disorder (3) Major depressive disorder, recurrent episode AMOL URBAN MD Dec 17, 2018 21:54
--- NOTE | 2018-12-18 09:01 | DS ---
DATE OF DISCHARGE: 12/17/2018 DISCHARGE SUMMARY AND PSYCHIATRIC PROGRESS NOTE This is a late entry 12/17/2018 covers elements not covered in my initial note. REASON FOR ADMISSION: Please refer to the admission history for details. Briefly, the patient is a 58-year-old male referred to us from the [facility] where he presented from his home on account of worsening symptoms of depression, hopelessness, worthlessness, suicidal ideation with thoughts of self-harm. He was getting increasingly anxious, obsessive and had failed outpatient psychiatric interventions. SIGNIFICANT FINDINGS AND CLINICAL COURSE: Following admission, the patient was seen daily individually by myself from a psychiatric standpoint, medical followup with Dr. [place]. The patient was quite depressed, withdrawn, isolative, irritable, manipulative with staff and obsessive. Adjustments were made in his psychotropics and he seemed to respond to a combination of Luvox increasing to 75 mg at bedtime for his OCD, mood and anxiety symptoms, Seroquel 12.5 mg t.i.d. to augment the Luvox and to help with anxiety, mood lability, trazodone 150 mg at bedtime for insomnia, melatonin 6 mg at bedtime. Gradually, mood improved. He was much more insightful and did shave of his head because he said he made so many changes on "inside and I wanted to match it on the outside." REVIEW OF SYSTEMS: Prior to discharge, 12/17/2018, no CV, , pulmonary, eye, ENT system symptoms on review. MENTAL STATUS EXAM: Reasonably oriented. Speech is coherent, abstraction fair, computation impaired, language function intact, attention span short. Mood and affect improved. No suicidal ideation. LABORATORY DATA: Reviewed. FINAL DIAGNOSES: Major depressive disorder, recurrent, in partial remission, symptoms of obsessive compulsive disorder, anxiety disorder, unspecified; impulse control disorder, personality disorder, unspecified. Rest unchanged from admission. DISCHARGE MEDICATIONS: Please refer to the MRAD. DISCHARGE INSTRUCTIONS: Outpatient psychiatric and medical followup at the [facility]. Time for discharge day management greater than 30 minutes. MAN Miryam URBAN MD DR: YISSEL/jin JOB#: [id number] / [id number]
--- NOTE | 2018-12-18 09:29 | PN ---
DATE: 12/15/2018 PSYCHIATRIC PROGRESS NOTE This late entry 12/15/2018 covers elements not covered in my initial note. SUBJECTIVE: I met with the patient in the evening, staffed a treatment team meeting with the entire team earlier in the day. The patient slept 8 hours. Appetite 75-100%, calm, compliant, cooperative with cares and medications. He is much less anxious, restless, more insightful patient. REVIEW OF SYSTEMS: Ambulation somewhat impaired. No CV, , pulmonary, eye system symptoms on review. MENTAL STATUS EXAM: Reasonably oriented. Speech is coherent, abstraction fair, computation impaired, language function intact, attention span short. Mood and affect is improved, less anxious, less labile, more insightful. LABORATORY DATA: Reviewed. IMPRESSION: Unchanged from initial note. PLAN: No change from initial note with possible discharge 12/17/2018. AMOL URBAN MD DR: YISSEL/jin JOB#: [id number] / [id number]
--- NOTE | 2018-12-18 19:45 | PN ---
DATE: 12/16/2018 PSYCHIATRIC PROGRESS NOTE This late entry 12/16/2018 covers elements not covered in my initial note. SUBJECTIVE: I met with the patient evening of 12/16/2018. The patient slept 6-3/4 hours previous night. He has been fairly appropriate on the unit, interactive, less anxious and less obsessive, less irritable. REVIEW OF SYSTEMS: Ambulation impaired and with walker at times, he ambulates himself. No CV, , pulmonary, eye system symptoms on review. MENTAL STATUS EXAM: Reasonably oriented. Speech is coherent, abstraction fair, computation impaired, language function intact, attention span short. Mood and affect less withdrawn, brighter. LABORATORY DATA: Reviewed. IMPRESSION: Unchanged from initial note. PLAN: No change from initial note with possible discharge to outpatient treatment, 12/17/2018. MAN Miryam URBAN MD DR: YISSEL/jin JOB#: [id number] / [id number]
== END 2018-12-17 15:15 | disposition home or self-care (01) | DRG 885 ==
LOC: GEROPSY 19:40
PROVIDERS: ADMIT Psychiatry & Neurology Psychiatry; ATTEND Psychiatry & Neurology Psychiatry
PROC: 5A09357 Assistance with Respiratory Ventilation, Less than 24 Consecutive Hours, Continuous Positive Airway Pressure (ICD-10-PCS; principal; 2018-12-03)
PROC: 5A09357 Assistance with Respiratory Ventilation, Less than 24 Consecutive Hours, Continuous Positive Airway Pressure (ICD-10-PCS; 2018-12-11)
PROC: 5A09357 Assistance with Respiratory Ventilation, Less than 24 Consecutive Hours, Continuous Positive Airway Pressure (ICD-10-PCS; 2018-12-13)
PROC: 5A09357 Assistance with Respiratory Ventilation, Less than 24 Consecutive Hours, Continuous Positive Airway Pressure (ICD-10-PCS; 2018-12-14)
DX: F33.3 Major depressive disorder, recurrent, severe with psychotic symptoms (principal); R45.851 Suicidal ideations; Z68.44 Body mass index [BMI] 60.0-69.9, adult; D32.9 Benign neoplasm of meninges, unspecified; E11.40 Type 2 diabetes mellitus with diabetic neuropathy, unspecified; E66.01 Morbid (severe) obesity due to excess calories; E78.5 Hyperlipidemia, unspecified; F03.90 Unspecified dementia, unspecified severity, without behavioral disturbance, psychotic disturbance, mood disturbance, and anxiety; F42.9 Obsessive-compulsive disorder, unspecified; F43.10 Post-traumatic stress disorder, unspecified; F60.9 Personality disorder, unspecified; F63.9 Impulse disorder, unspecified; G47.00 Insomnia, unspecified; G47.33 Obstructive sleep apnea (adult) (pediatric); M19.90 Unspecified osteoarthritis, unspecified site; I10 Essential (primary) hypertension; J45.909 Unspecified asthma, uncomplicated; M10.9 Gout, unspecified; N40.0 Benign prostatic hyperplasia without lower urinary tract symptoms; R56.9 Unspecified convulsions; W01.0XXA Fall on same level from slipping, tripping and stumbling without subsequent striking against object, initial encounter; Z86.711 Personal history of pulmonary embolism; Z79.899 Other long term (current) drug therapy; Y93.89 Activity, other specified; Y92.89 Other specified places as the place of occurrence of the external cause; Y99.8 Other external cause status; Z85.51 Personal history of malignant neoplasm of bladder
CPT/HCPCS: 36415; 80053; 80061; 81001; 82306; 82947; 83036; 83540; 83550; 83735; 84436; 84443; 84480; 85014; 85018; 85025; 85610; 86592; 94640; J1815; J7613; 97535